=== PATIENT | male | born 1950 | race Caucasian/White ===

== ENCOUNTER 2018-02-11 23:34 | Emergency (ER) | payer MEDICARE, SELFPAY ==
[2018-02-11 23:34] VITALS: BP 134/86; PULSE 170; RESP 20; TEMP 36.4; O2SAT 96; BMI 41.1
--- NOTE | 2018-02-11 23:48 | EKG12_ITS ---
Test Reason : Blood Pressure : / mmHG Vent. Rate : 152 BPM Atrial Rate : 156 BPM P-R Int : 000 ms QRS Dur : 132 ms QT Int : 316 ms P-R-T Axes : 000 -13 027 degrees QTc Int : 502 ms Atrial fibrillation with premature ventricular or aberrantly conducted complexes Right bundle branch block Abnormal ECG Confirmed by MAYURI SHEA, SUSANNE ([id number]), television news video editor RADHA HWANG ([id number]) on 02/17/2018 3:14:51 PM Referred By: MARSHAL Confirmed By:SUSANNE MESSINA MD
--- NOTE | 2018-02-11 23:49 | ED.VISSUMM ---
- ER Visit Summary Date of Service: 02/11/18 Chief Complaint: [] Tachycardia History of Present Illness: The patient is a 67 M resents to the emergency department heart racing for the last hour and a half. He felt a little clammy and checked his pulse and it was racing. He denies any other symptoms. He has a history of atrial flutter. He has had 3 cardioversions remotely. He had any problems since 2013 when he had his ablation at the [facility] by Dr. Carmona. Sees Dr. Sanchez locally twice a year. He is on no medications including beta-devonte or calcium channel devonte. He recently had myasthenia gravis a couple months ago and is on 40 mg of prednisone. Physical Examination: [] Vital signs reviewed General: Well-nourished well-developed Head: Normocephalic atraumatic Eyes: Pupils equal round and reactive to light extraocular movements intact ENT: TMs clear no hemotympanum no trauma Neck: Nontender full range of motion Cardiovascular: irregular tachycardia. No murmurs normal S1-S2 Respiratory: No distress clear to auscultation bilaterally chest nontender Abdomen: Soft nontender nondistended normal bowel sounds no masses Back: Nontender no CVA tenderness Extremities: Nontender active range of motion ?4 extremities no trauma Skin: Normal color no trauma Neuro alert oriented cranial nerves II through XII intact normal strength sensation reflexes Test Results: [] Emergency Department Course and Treatment: [] EKG shows atrial fibrillation at 152. Lab work obtained. Patient given a dose of Cardizem. Heart rate came down in the low 100s. CBC is normal except white count of 14.3. Chemistries normal except chloride 109 glucose 195 creatinine 1.3 at baseline. Coags negative. Troponin 0 0.[address] Sanchez with cardiology. He felt that we could synchronize cardiovert because the patient just went into this tonight. Patient consented to this. Given propofol in incremental dosing in place on oxygen. She was cardioverted synchronized at 150 J back to normal sinus rhythm. A repeat EKG shows sinus rhythm 81. Patient's resting comfortably. Dr. Sanchez stated due to the fact this is short-lived he does not have to be on a beta-devonte or calcium channel devonte. Aspirin and follow-up with with Dr. Sanchez as an outpatient Treatment Plan: [] Disposition: [] Impression: [] Atrial fibrillation with rapid ventricular response Procedural sedation for synchronized cardioversion Critical CARE time: 74 minutes This note was generated with ListRunner dictation software. It may contain incorrect words, spelling, and punctuation that were not noted in review of the chart prior to signing ED Disposition - Plan for ED Patient: Chief Complaint: Palpitations Referrals: Susie Johnson MD [Primary Care Provider] -
[2018-02-11] MEDS: dilTIAZem 25 MG/5 ML Vial 20 MG IV BOLUS (23:55)
[2018-02-11 23:58] VITALS: O2SAT 94
[2018-02-11 23:59] VITALS: BP 109/95; PULSE 103; RESP 12; O2SAT 94
[2018-02-12] VITALS (8 sets, daily range): BP systolic 101–149; BP diastolic 53–77; PULSE 80–138; RESP 16–20; O2SAT 92–99
[2018-02-12 00:11] LABS: Absolute Lymphocyte Count 2.19 X10^3/ul (0.83-4.51); Absolute Neutrophil Count 10.8 X10^3/uL (2.0-7.7); Basophil# 0.02 X10^3/uL; Basophil% 0.1 % (0-1); Eosinophil# 0.02 X10^3/uL; Eosinophils% 0.1 % (0-5); Hemoglobin 16.6 g/dl (13.0-16.5); Lymphocyte # 2.19 X10^3/ul (4.0); Lymphocyte % 15.3 % (19-41); Mean Corp Hgb Conc 33.9 g/gl (32-36); Mean Corpuscular Volume 88.4 fL (80-94); Mean Platelet Vol. 9.6 fl (6.2-12.0); Monocyte# 1.03 X10^3/uL; Monocyte% 7.2 % (0-10); Neutrophil % 75.8 % (47-70); POSITIVE COUNT NO; POSITIVE DIFFERENTIAL NO; POSITIVE MORPHOLOGY NO; Platelet Count 197 K/mm3 (150-450); RBC Distribution Width SD 51.9 fl (35.1-43.9); Red Blood Count 5.54 M/mm3 (4.6-6.2); White Blood Count 14.3 K/mm3 (4.4-11.0)
[2018-02-12 00:13] LABS: International Normalized Ratio 0.9; Prothrombin Time (Protime)PT. 11.9 SECONDS (11.7-14.9)
[2018-02-12 00:30] LABS: Anion Gap 10 (5-15); BUN 30 mg/dL (7-18); BUN/Creat Ratio 22.2 RATIO (10-20); Calcium,Total 8.5 mg/dL (8.5-10.1); Chloride 109 mmol/L (98-107); Creatinine, Serum 1.35 mg/dL (0.70-1.30); EST Glomerular Filtration Rate 56 mL/min (>60); Est Glom Filt Rate - Afr Amer 67 mL/min (>60); Estimated Creatinine Clearance 60.89 ml/min; Glucose 195 mg/dL (74-106); Potassium 3.9 mmol/L (3.5-5.1); Sodium Level 140 mmol/L (136-145)
[2018-02-12] MEDS: Propofol 200 MG/20 ML Vial IV BOLUS (01:12)
--- NOTE | 2018-02-12 01:15 | EKG12_ITS ---
Test Reason : REPEAT Blood Pressure : / mmHG Vent. Rate : 081 BPM Atrial Rate : 094 BPM P-R Int : 000 ms QRS Dur : 092 ms QT Int : 376 ms P-R-T Axes : 023 006 -16 degrees QTc Int : 436 ms Sinus rhythm Low voltage QRS Right intra ventricular conduction delay Nonspecific ST abnormality Abnormal ECG Confirmed by MAYURI SHEA, SUSANNE ([id number]), international editorial producer RADHA HWANG ([id number]) on 02/17/2018 3:15:46 PM Referred By: MARSHAL Confirmed By:SUSANNE MESSINA MD
--- NOTE | 2018-02-12 01:29 | ED.DEP ---
ED Disposition - Plan for ED Patient: Disposition: Home or Assisted Living Chief Complaint: Palpitations Instructions: ED Afib Referrals: Susie Johnson MD [Primary Care Provider] - James Sanchez MD [STAFF PHYSICIAN] -
== END 2018-02-12 02:00 | disposition home or self-care (01) ==
PROVIDERS: Emergency Provider Emergency Medicine; Family Provider Internal Medicine; PCP Internal Medicine
DX: I48.91 Unspecified atrial fibrillation (principal); G70.00 Myasthenia gravis without (acute) exacerbation; I10 Essential (primary) hypertension; E78.00 Pure hypercholesterolemia, unspecified; E66.9 Obesity, unspecified; I49.3 Ventricular premature depolarization; I48.92 Unspecified atrial flutter; Z79.52 Long term (current) use of systemic steroids; Z79.51 Long term (current) use of inhaled steroids; Z79.82 Long term (current) use of aspirin; Z79.899 Other long term (current) drug therapy
CPT/HCPCS: 80048; 84484; 85025; 85610; 85730; 92960; 93005; 96374; 96375; 99284; J7030; A4216

== ENCOUNTER 2018-03-13 09:40 | Observation (INO) | payer MEDICARE, SELFPAY ==
[2018-03-13] VITALS (10 sets, daily range): BP systolic 137–170; BP diastolic 38–100; PULSE 58–97; RESP 16–24; TEMP 36.7–37.2; O2SAT 94–100; BMI 40.4; BMI 41.5
--- NOTE | 2018-03-13 09:52 | CT_ITS ---
STUDY: CT ABDOMEN AND PELVIS WITHOUT CONTRAST REASON FOR EXAM: Male, 67 years old. Left-sided flank pain. Patient has history of appendectomy. RADIATION DOSAGE (If Supplied By Facility): CTDIvol = ( 23.06 ) mGy, DLP = ( 1238.56 ) mGycm TECHNIQUE: Transaxial images were obtained from the dome of the diaphragm to the symphysis pubis without oral contrast, and without intravenous contrast. Sagittal and coronal images were reconstructed. Individualized dose optimization techniques were used for this CT. COMPARISON: None. FINDINGS: There is interstitial thickening visible at the lung bases The visualized portions of the heart are within normal limits. Normal liver. There are multiple gallstones. Normal spleen. Normal pancreas. Normal bilateral adrenal glands. There is mild cortical atrophy of the right kidney, consistent with chronic medical renal disease. There is a small exophytic cystic lesion arising from the posterior aspect of the right kidney measuring 8 mm in greatest dimension. This is too small to characterize. There is mild cortical atrophy of the left kidney, consistent with chronic medical renal disease. There is mild left-sided hydronephrosis and hydroureter secondary to proximal ureteral calculus measuring approximately 6 mm in greatest dimension. Normal visualized stomach. There is no evidence for dilated bowel, ascites or pneumoperitoneum. Small bowel has a grossly normal appearance. Surgical sutures are visible at the hepatic flexure the colon. Appears to been partial right-sided hemicolectomy. There is very little solid stool with nondistention of the rest of the colon and questionable thickening of the franco. There is non-visualization of the appendix. There is minimal atherosclerotic calcification of the abdominal aorta with elongation and tortuosity, but without a demonstrated aneurysm. Normal inferior vena cava. Normal retroperitoneum. Normal urinary bladder. Normal visualized prostate gland. There appears to be an umbilical hernia containing fat. There may also be bilateral inguinal hernias containing fat. There are diffuse degenerative changes of the visualized thoracic and lumbar spine. CT/Abdomen/Pelvis without Cont IMPRESSION: 1. Mild left-sided hydronephrosis and hydroureter secondary to proximal ureteral calculus. 2. Sequela of partial right-sided colectomy. 3. Cholelithiasis. Electronically Signed: Krupa Rudd MD at 11:02 EDT , Service support ,
[2018-03-13 10:16] LABS: Absolute Lymphocyte Count 3.56 X10^3/ul (0.83-4.51); Absolute Neutrophil Count 6.1 X10^3/uL (2.0-7.7); Basophil# 0.03 X10^3/uL; Basophil% 0.3 % (0-1); Eosinophil# 0.08 X10^3/uL; Eosinophils% 0.7 % (0-5); Hematocrit 42.1 % (40-54); Hemoglobin 14.1 g/dl (13.0-16.5); Lymphocyte # 3.56 X10^3/ul (4.0); Lymphocyte % 32.9 % (19-41); Mean Corp Hgb Conc 33.5 g/gl (32-36); Mean Corpuscular Hgb 29.9 pg (27.0-32.0); Mean Corpuscular Volume 89.4 fL (80-94); Mean Platelet Vol. 9.2 fl (6.2-12.0); Monocyte% 8.3 % (0-10); Neutrophil # 6.06 X10^3/uL (2.7-7.7); POSITIVE COUNT NO; POSITIVE DIFFERENTIAL NO; POSITIVE MORPHOLOGY NO; Platelet Count 235 K/mm3 (150-450); RBC Distribution Width CV 16.4 % (11.6-14.6); RBC Distribution Width SD 52.2 fl (35.1-43.9); Red Blood Count 4.71 M/mm3 (4.6-6.2); White Blood Count 10.8 K/mm3 (4.4-11.0)
[2018-03-13] MEDS: 0.9% Normal Saline 1,000 ML 1000 ML IV (10:19)
[2018-03-13] MEDS: Morphine 4 MG/ML Syringe IV ×2 (10:19→11:08)
[2018-03-13] MEDS: Ondansetron 4 MG/2 ML Vial IV (10:20)
[2018-03-13 10:26] LABS: ALB/GLOB Ratio 0.9 RATIO (0.9-2.4); AST(SGOT) 18 U/L (15-37); Alanine Aminotransfer ALT/SGPT 37 U/L (16-61); Alkaline Phosphatase 53 U/L (45-117); Anion Gap 8 (5-15); BUN 15 mg/dL (7-18); BUN/Creat Ratio 14.2 RATIO (10-20); Calcium,Total 8.5 mg/dL (8.5-10.1); Chloride 109 mmol/L (98-107); Creatinine, Serum 1.06 mg/dL (0.70-1.30); EST Glomerular Filtration Rate 74 mL/min (>60); Est Glom Filt Rate - Afr Amer 89 mL/min (>60); Estimated Creatinine Clearance 77.55 ml/min; Globulin 3.2 g/dL (2.2-4.2); Glucose 133 mg/dL (74-106); Lipase 186 U/L (73-393); Potassium 3.8 mmol/L (3.5-5.1); Protein, Total 6.2 g/dL (6.4-8.2); Sodium Level 143 mmol/L (136-145)
[2018-03-13 11:21] LABS: Mucous, Urine 0 SEEN /hpf (<or=2+); Squamous Epithelial Cells - UA 0 SEEN /hpf (0-5)
[2018-03-13 11:24] LABS: Color, Urine Yellow (Yellow); Glucose, Dipstick Normal (Normal); Ketone-Dipstick 50 mg/dl (Negative); Leukocyte Esterase-Dipstick 25 /ul (Negative); Nitrite-Dipstick Negative (Negative); Occult Blood-Urine 250 /ul (Negative); Protein-Dipstick 30 mg/dl (Negative); Specific Gravity, Urine 1.015 (1.002-1.030); Urine Bilirubin Dipstick Negative (Negative); Urine Clarity Clear (Clear); Urine Urobilinogen Normal (Normal)
[2018-03-13 11:31] LABS: Bacteria 1+ /hpf (None Seen); Red Blood Cells-Urine 50-100 SEEN /hpf (0-5); White Blood Cells 5-10 SEEN /hpf (0-5)
--- NOTE | 2018-03-13 11:33 | ED.VISSUMM ---
- ER Visit Summary Date of Service: 03/13/18 Chief Complaint: Flank pain History of Present Illness: The patient is a 67 M with left-sided flank pain. This started relatively suddenly earlier this morning. It involves his left flank and left lower quadrant. Associated with nausea but no vomiting. He denies any urinary changes. Denies diarrhea or constipation. He has a history of gallstones and myasthenia gravis. Denies any history of kidney stones. Physical Examination: Vital signs unremarkable. Afebrile. Patient appears very uncomfortable. Heart regular. Lungs clear. Abdomen is tender in the left flank and left lower quadrant area. No guarding rebound. Skin appears normal. Test Results: Labs all fairly unremarkable. Urinalysis is pending at the time of this dictation. CT flank shows a 6 mm proximal ureter stone on the left side with mild hydro-ureter and hydronephrosis. He also has cholelithiasis and postoperative changes. Emergency Department Course and Treatment: Patient received fluids, morphine, and Zofran. He quite an additional dose of morphine. He continued to have very severe pain, 8 out of 10. He received a dose of Dilaudid. Patient is not appropriate for outpatient care and follow-up. I spoke with Dr. Louis. Was made n.p.o. and will be admitted. Disposition: Admission Impression: 1. Left ureteral colic This note was generated with 37[employer] dictation software. It may contain incorrect words, spelling, and punctuation that were not noted in review of the chart prior to signing ED Disposition - Plan for ED Patient: Chief Complaint: Abd Pain Referrals: Susie Johnson MD [Primary Care Provider] -
[2018-03-13] MEDS: HYDROmorphone 1 MG/ML Syringe IV (11:42)
--- NOTE | 2018-03-13 13:15 | EKG12_ITS ---
Test Reason : PRE-OP Blood Pressure : / mmHG Vent. Rate : 086 BPM Atrial Rate : 086 BPM P-R Int : 148 ms QRS Dur : 100 ms QT Int : 394 ms P-R-T Axes : 055 024 -26 degrees QTc Int : 471 ms Sinus rhythm with Premature atrial complexes Low voltage QRS Nonspecific ST abnormality Abnormal ECG When compared with ECG of 12-FEB-2018 01:23, Premature atrial complexes are now Present Confirmed by SHELBY WOOD ([id number]), editor publications RADHA HWANG ([id number]) on 03/25/2018 12:34:46 PM Referred By: Confirmed By:SHELBY WOOD
[2018-03-13] MEDS: 0.9% Normal Saline 1,000 ML 75 ML IV (13:22)
[2018-03-13] MEDS: Morphine 2 MG/ML Syringe IV (13:37)
--- NOTE | 2018-03-13 13:48 | HP.PCM_ITS ---
Problem List (1) Left ureteral calculus Status: Acute History of Present Illness Date of Admission: 03/13/18 Chief Complaint: Left ureteral calculi with intractable pain The patient is a 67 year old male with presentation to the emergency room and has a 6-7 mm stone in the proximal left ureter with obstruction and he had severe intractable pain emergency room called me and asked me to admit the patient because of intractable pain. Plan to take the patient today for cystoscopy and stent placement and then plan for outpatient surgery regarding the stone probably will be able to home today after placed a stent. No fevers or chills. No signs of infection. Obese male with history of heart disease and a cardiac ablation in the past and has myasthenia gravis. Past Medical History Past Medical History (Chronic Problems): Chronic Problems (Last Reviewed 08/05/17 @ 10:22 by James Sanchez MD) Premature ventricular beat (Chronic) Hyperlipidemia (Chronic) Hypertension (Chronic) Atrial flutter (Chronic) Paroxysmal atrial flutter (Chronic) Obesity (BMI 30-39.9) (Chronic) Medical History: Medical History (Last Reviewed 08/05/17 @ 10:22 by James Sanchez MD) Premature ventricular beat (Chronic) I49.3 Hyperlipidemia (Chronic) E78.5 Hypertension (Chronic) I10 Atrial flutter (Chronic) I48.92 Obesity (BMI 30-39.9) (Chronic) E66.9 Asthma dependent on inhaled steroids J45.909, Z79.51 Myasthenia gravis without (acute) exacerbation G70.00 Neoplasm of colon, malignant C18.9 Obstructive sleep apnea (adult) (pediatric) G47.33 Allergies grass pollen-perennial rye, standar [grass poll-perennial rye,std] Allergy ( Intermediate, Verified 03/13/18 09:43) Inflammation of lung Home Medications: Ambulatory Orders Medication Instructions Recorded Albuterol Sulfate [Proventil Hfa] 2 puff IH 4X/DAY PRN PRN 06/09/14 Aspirin [Aspirin, Baby] 81 mg PO DAILY@0800 06/09/14 Fluticasone 0.05% [Flonase Nasal 2 spray NASAL DAILY 06/09/14 [place]] Multivitamins,Therapeutic 1 tab PO DAILY 06/09/14 [Multivitamin] [place]-3 Fatty Acids/Fish Oil [Fish 2 ea PO DAILY 06/09/14 Oil 1,000 mg Capsule] Budesonide/Formoterol 160/4.5 2 puff INHALATION BID 08/15/14 [Symbicort 160/4.5 Mcg Inhaler (SP)] Montelukast [Singulair] 10 mg PO DAILY 08/15/14 cholecalciferol (vitamin D3) 2,000 2,000 unit PO DAILY 08/04/17 unit capsule pyridostigmine bromide ER 180 mg 180 mg PO QHS 08/05/17 tablet,extended release Loratadine [Claritin] 10 mg PO DAILY 02/11/18 Prednisone 40 mg PO DAILY 02/11/18 Aspirin 325 mg PO DAILY@0800 03/13/18 Pyridostigmine [place] 60 mg PO 4X/DAY 03/13/18 Surgical History: Surgical History (Last Reviewed 08/05/17 @ 10:09 by Sasha Talamantes) Cataract extraction status of right eye Onset Date: ~2016 Z98.41 Cataract extraction status of right eye Onset Date: ~02/2017 Z98.41 History of cardioversion Onset Date: ~11/20/11 Z98.890 History of colectomy Onset Date: ~11/19/06 Z90.49 History of radiofrequency ablation (RFA) for complex left atrial arrhythmia Onset Date: ~08/21/14 Z98.890, Z86.79 [facility]icose [facility] Onset Date: ~2009 excision of heel spur Onset Date: ~1991 fissurectomy with spincterectomy Onset Date: ~1988 Surgical History: appendectomy, arthroscopy, knee, - - Cardiac heart ablation Psychiatric History: No pertinent psych hx Smoking Status: Never smoker - *Family History Paternal Family History: Family History (Last Reviewed 08/05/17 @ 10:09 by Sasha Talamantes) Mother Diabetes Cancer History Items: - - Reviewed significant for longevity Review of Systems Constitutional: Denies: Chills, Fever, Weight Change HEENT: Denies: Head Aches, Sinus Congestion, Sinus Drainage Cardiovascular: Denies: Chest Pain, Palpitations Respiratory: Denies: Cough, Shortness of breath at rest, Sputum production Gastrointestinal: Reports: Abdominal Pain. Denies: Nausea, Vomiting Genitourinary: Reports: Hematuria. Denies: Dysuria Musculoskeletal: Denies: Joint Pain, Joint Tenderness Skin: Denies: Rash, Wounds Neurological: Denies: Numbness, Tingling, Focal weakness Psychiatric: Denies: Anxiety, Depression, Homicidal Ideations, Suicidal Ideations Hematologic/ Lymphatic: Denies: Easy Bruising, Easy Bleeding VTE Information - Inpt Only VTE Present on Admission: No VTE Mechan Device Prophylaxis: SCD's VTE Pharm Prophylaxis ordered?: No Reason prophylaxis not ordered:: Treatment Not Indicated Patient Problems: Active and Suspected Problems (Last Reviewed 08/05/17 @ 10:22 by James Sanchez MD ) Left ureteral calculus (Acute) - Physical Exam General: Alert, Oriented x3, Cooperative HEENT: Atraumatic, PERRLA, EOMI, Normocephalic Neck: Supple, No JVD, Negative Carotid Bruits Lungs: Clear to auscultation, Normal air movement Cardiovascular: Regular rate, No murmurs Abdomen: Bowel Sounds Present, Soft, Non Tender, Obese Extremities: No edema, Capillary Refill Less than 3 Seconds Skin: No rashes, No breakdown Musculoskeletal: No Tenderness to Palpation of Joints or Extremities Neurological: Cranial nerves II-XII grossly intact Psych/Mental Status: Normal Affect, Appropriate Vital Signs Temp Pulse Resp BP Pulse Ox 98.9 F 70 24 H 170/100 H 100 03/13/18 09:41 03/13/18 11:44 03/13/18 11:44 03/13/18 11:44 03/13/18 11:44 Weight: 146.8 kg Body Mass Index (BMI) 41.5 Assessment/Plan All Active Problems (Last Reviewed 08/05/17 @ 10:22 by James Sanchez MD) Left ureteral calculus (Acute) Bronchitis (Resolved) Atrial flutter with rapid ventricular response (Resolved) 67-year-old male with multiple medical problems including obesity, history of heart disease with cardiac ablation, history of myasthenia gravis. Presents to the emergency room with severe pain obstructing left ureteral stone about 6-7 mm in size I do not think uvula passed a stone spontaneously given its proximal location. He is failed conservative measures so today when taken to surgery for cystoscopy left stent placement if he can visualize a stone under fluoroscopy probably plan for left [facility] at [facility] the next data available.
[2018-03-13] MEDS: Lidocaine Jelly 2% 20 ML Syringe (URO-JET) 20 APPLIC (14:01)
--- NOTE | 2018-03-13 14:33 | PCM.OPRPT ---
Problem List (1) Left ureteral calculus Status: Acute Report of Operation Date of Procedure: 03/13/18 Pre-Operative Diagnosis: Left proximal ureteral calculi causing obstruction Post-Operative Diagnosis: Same Surgery/Procedure Performed:: Cystoscopy, left stent placement Description of Surgical Findings:: 67-year-old male brought back to the operating room he underwent a MAC local anesthesia, he is placed in dorsal lithotomy position, the penis and testicles were prepped and draped in usual sterile fashion, I then went into the bladder with a 21 [place] rigid cystourethroscope the entire length the urethra is normal the prostate was normal but very high bladder neck of the pushed down really far and to go into the bladder neck fairly high difficult to get into the bladder once is in the bladder identified the left ureteral orifice I advanced a wire and I could see the stone and then I pushed a stent up into the left kidney once a stent was apparent loss of stone under fluoroscopy but I could see the stone initially. And then once the stent was in good position I pulled on the wire and the stent coiled in the kidney bladder Is good position there was a 28[address] [place]. Patient anesthetic was reversed taken back to PACU in good condition. Type of Anesthesia:: General Drains: stent - Admit VTE Documentation VTE Present on Admission: No VTE Mechan Device Prophylaxis: SCD's VTE Pharm Prophylaxis ordered?: No Reason prophylaxis not ordered:: Treatment Not Indicated
--- NOTE | 2018-03-13 14:38 | PCM.DC.URO ---
Discharge Diet: Light diet - advance as tolerated Discharge Activity: Return to Normal Activity Call your doctor if you observe: Fever of 101 or Higher Instructions: Preventing Kidney Stones Allergies/Adverse Reactions: Allergies grass pollen-perennial rye, standar [grass poll-perennial rye,std] Allergy (Intermediate, Verified 03/13/18 09:43) Inflammation of lung Medications to take at Discharge Albuterol Sulfate [Proventil Hfa] 2 puff IH 4X/DAY PRN PRN 06/09/14 Aspirin [Aspirin, Baby] 81 mg PO DAILY@0800 06/09/14 Fluticasone 0.05% [Flonase Nasal [place]] 2 spray NASAL DAILY 06/09/14 Multivitamins,Therapeutic [Multivitamin] 1 tab PO DAILY 06/09/14 [place]-3 Fatty Acids/Fish Oil [Fish Oil 1,000 mg Capsule] 2 ea PO DAILY 06/09/14 Budesonide/Formoterol 160/4.5 [Symbicort 160/4.5 Mcg Inhaler (SP)] 2 puff INHALATION BID 08/15/14 Montelukast [Singulair] 10 mg PO DAILY 08/15/14 cholecalciferol (vitamin D3) 2,000 unit capsule 2,000 unit PO DAILY 08/04/17 pyridostigmine bromide ER 180 mg tablet,extended release 180 mg PO QHS 08/05/17 Loratadine [Claritin] 10 mg PO DAILY 02/11/18 Prednisone 40 mg PO DAILY 02/11/18 Aspirin 325 mg PO DAILY@0800 03/13/18 Hydrocodone/Acetaminophen [[place] 5-325 Tablet] 1 ea PO Q4H PRN PRN 7 Days #20 tab 03/13/18 Phenazopyridine HCl [Pyridium] 100 mg PO Q6H PRN PRN #14 tab 03/13/18 Pyridostigmine [place] 60 mg PO 4X/DAY 03/13/18 The following prescriptions were given: Hydrocodone/Acetaminophen [[place] 5-325 Tablet] 1 ea PO Q4H PRN PRN 7 Days #20 tab PRN Reason: Pain Phenazopyridine HCl [Pyridium] 100 mg PO Q6H PRN PRN #14 tab PRN Reason: burning, stent pain. Primary Care Physician: Susie Johnson MD [Primary Care Provider] - Test Results: Test results from this visit will be discussed in further detail at your follow-up appointment, if applicable. Please Follow Up With: Gavino Louis MD When: call my office to set up for shockwave treatment of stone.
== END 2018-03-13 17:41 | disposition home or self-care (01) ==
LOC: ED 10:15 → MS3 12:00
PROVIDERS: Admitting Provider Urology; Emergency Provider Emergency Medicine; Family Provider Internal Medicine; PCP Internal Medicine; Visit Provider Urology
PROC: (CPT 52332; principal; 2018-03-13 03:00)
DX: N13.2 Hydronephrosis with renal and ureteral calculous obstruction (principal); G70.00 Myasthenia gravis without (acute) exacerbation; E78.5 Hyperlipidemia, unspecified; I10 Essential (primary) hypertension; Z68.41 Body mass index [BMI] 40.0-44.9, adult; Z71.3 Dietary counseling and surveillance; Z79.899 Other long term (current) drug therapy; Z79.82 Long term (current) use of aspirin; Z79.52 Long term (current) use of systemic steroids; I48.92 Unspecified atrial flutter; G47.33 Obstructive sleep apnea (adult) (pediatric); Z85.038 Personal history of other malignant neoplasm of large intestine; J45.909 Unspecified asthma, uncomplicated; Z79.51 Long term (current) use of inhaled steroids; E66.01 Morbid (severe) obesity due to excess calories
CPT/HCPCS: 52332; 74176; 76000; 80053; 81001; 83690; 85025; 93005; 96361; 96374; 96375; 96376; 99218; 99285; J7030; A4216; C1769; G0378; J2405

== ENCOUNTER 2018-03-26 14:02 | Day surgery (SDC) | payer MEDICARE, SELFPAY ==
--- NOTE | 2018-03-26 10:53 | RAD_ITS ---
STUDY: X-RAY CHEST REASON FOR EXAM: Male, 68 years old. Preop for abdominal surgery TECHNIQUE: 2 PA and lateral views of the chest. 2 PA chest required to visualized both costophrenic angles COMPARISON: 2013 FINDINGS: The lungs are clear and expanded. There is no demonstrated pleural abnormality. Normal size heart. Normal mediastinum and samm. Normal visualized pulmonary arteries. Normal visualized aortic arch and descending thoracic aorta. Normal visualized thoracic spine. Normal visualized ribs, clavicles, and shoulders. There is no demonstrated abnormality of the visualized soft tissue structures of the upper abdomen. RAD/Chest PA and Lateral IMPRESSION: Normal x-ray examination of the chest. Electronically Signed: Jake Mcghee MD at 14:40 EDT , Service support ,
--- NOTE | 2018-03-26 14:00 | RAD_ITS ---
STUDY: X-RAY - ABDOMEN/PELVIS REASON FOR EXAM: Male, 68 years old. Left-sided pain TECHNIQUE: 3 AP views COMPARISON: CT scan from 03/13/2018 FINDINGS: Satisfactory appearance of a left-sided JJ stent. No demonstrated calcifications noted along the course of the stent. There are also no demonstrated calcifications overlying the right renal shadow or along the expected course of the right ureter. There is an unremarkable bowel gas pattern. There is no demonstrated free abdominal air. The visualized liver, spleen and kidneys are grossly normal in size and morphology. Normal soft tissue structures. There are diffuse degenerative changes of the visualized lumbar spine. RAD/Abdomen Single View IMPRESSION: Satisfactory position of a JJ stent No demonstrated calcifications overlying either renal shadow, or along the course of the stent or expected course of the right ureter Electronically Signed: Jake Mcghee MD at 14:33 EDT , Service support ,
--- NOTE | 2018-03-26 14:31 | EKG12_ITS ---
Test Reason : PRE-OP Blood Pressure : / mmHG Vent. Rate : 097 BPM Atrial Rate : 097 BPM P-R Int : 158 ms QRS Dur : 126 ms QT Int : 384 ms P-R-T Axes : 016 013 002 degrees QTc Int : 487 ms Normal sinus rhythm Right bundle branch block Abnormal ECG Confirmed by MAYURI SHEA, SUSANNE ([id number]), manager editorial RADHA HWANG ([id number]) on 04/02/2018 8:35:55 AM Referred By: Gavino Louis Confirmed By:SUSANNE MESSINA MD
[2018-03-26 14:54] VITALS: BP 141/76; PULSE 97; RESP 16; TEMP 36.9; O2SAT 96; BMI 40.4
[2018-03-26 14:59] LABS: Hematocrit 43.8 % (40-54); Hemoglobin 14.4 g/dl (13.0-16.5); Mean Corp Hgb Conc 32.9 g/gl (32-36); Mean Corpuscular Hgb 29.4 pg (27.0-32.0); Mean Corpuscular Volume 89.6 fL (80-94); Mean Platelet Vol. 9.4 fl (6.2-12.0); Platelet Count 238 K/mm3 (150-450); RBC Distribution Width CV 16.3 % (11.6-14.6); RBC Distribution Width SD 53.1 fl (35.1-43.9); Red Blood Count 4.89 M/mm3 (4.6-6.2); White Blood Count 12.9 K/mm3 (4.4-11.0)
[2018-03-26 15:00] LABS: Scan Indicated on CBC? Y/N NO
[2018-03-26 15:29] LABS: Anion Gap 7 (5-15); BUN 16 mg/dL (7-18); Calcium,Total 8.7 mg/dL (8.5-10.1); Chloride 109 mmol/L (98-107); EST Glomerular Filtration Rate 79 mL/min (>60); Est Glom Filt Rate - Afr Amer 96 mL/min (>60); Estimated Creatinine Clearance 81.06 ml/min; Glucose 128 mg/dL (74-106); Sodium Level 140 mmol/L (136-145)
[2018-03-26] MEDS: Cefazolin 2 GM in 0.9% Normal Saline 100 ML IV (15:38)
--- NOTE | 2018-03-26 16:55 | DCINST_ITS ---
Discharge Diet: Light diet - advance as tolerated Discharge Activity: Return to Normal Activity, May Not Drive - for 2 days. Additional Activity Instructions:: f you have a catheter, remove on ___. If you have any problems after catheter is removed, call [phone] and ask for your doctor to be paged. Please be aware that pain medications may cause nausea. You should typically eat light foods as you take your pain medication. Pain medication may cause constipation, if this is a problem for you, please discuss with your doctor. Instructions: Shock Wave Lithotripsy Allergies/Adverse Reactions: Allergies grass pollen-perennial rye, standar [grass poll-perennial rye,std] Allergy ( Intermediate, Verified 03/23/18 13:26) Inflammation of lung Medications to take at Discharge Albuterol Sulfate [Proventil Hfa] 2 puff IH 4X/DAY PRN PRN 06/09/14 Aspirin [Aspirin, Baby] 81 mg PO DAILY@0800 06/09/14 Fluticasone 0.05% [Flonase Nasal [place]] 2 spray NASAL DAILY 06/09/14 Multivitamins,Therapeutic [Multivitamin] 1 tab PO DAILY 06/09/14 [place]-3 Fatty Acids/Fish Oil [Fish Oil 1,000 mg Capsule] 2 ea PO DAILY 06/09/14 Budesonide/Formoterol 160/4.5 [Symbicort 160/4.5 Mcg Inhaler (SP)] 2 puff INHALATION BID 08/15/14 Montelukast [Singulair] 10 mg PO DAILY 08/15/14 cholecalciferol (vitamin D3) 2,000 unit capsule 2,000 unit PO DAILY 08/04/17 pyridostigmine bromide ER 180 mg tablet,extended release 180 mg PO QHS 08/05/17 Loratadine [Claritin] 10 mg PO DAILY 02/11/18 Prednisone 20 mg PO DAILY 02/11/18 Hydrocodone/Acetaminophen [[place] 5-325 Tablet] 1 ea PO Q4H PRN PRN 7 Days #20 tab 03/13/18 Phenazopyridine HCl [Pyridium] 100 mg PO Q6H PRN PRN #14 tab 03/13/18 Pyridostigmine [place] 60 mg PO 4X/DAY 03/13/18 Hydrocodone/Acetaminophen [[place] 5-325 Tablet] 1 ea PO Q4H PRN PRN 6 Days #14 tab 03/26/18 The following prescriptions were given: Hydrocodone/Acetaminophen [[place] 5-325 Tablet] 1 ea PO Q4H PRN PRN 6 Days #14 tab PRN Reason: Pain Primary Care Physician: Susie Johnson MD [Primary Care Provider] - Test Results: Test results from this visit will be discussed in further detail at your follow- up appointment, if applicable. Please Follow Up With: Gavino Louis MD When: in 2 weeks, please call to make an appointment.
--- NOTE | 2018-03-26 16:55 | PCM.OPRPT ---
Report of Operation Date of Procedure: 03/26/18 Pre-Operative Diagnosis: Left ureteral calculi Post-Operative Diagnosis: Same Surgery/Procedure Performed:: Cystoscopy, left retrograde pyelogram, left ureteroscopy, left shockwave lithotripsy, stent removal left. Description of Surgical Findings:: 68-year-old male taken back to the operating room at the smooth induction of general anesthesia he was placed supine on the table in the dorsolithotomy position, penis and testicles were prepped and draped in usual sterile fashion went into the bladder with a flexible cystoscope grabbed the existing stent and pulled out the meatus advanced a wire up the stent under fluoroscopy we could not visualize a stone up in the kidney so I advanced a wire up the stent backloaded the stent off the wire and then advanced the Pollack catheter performed a retrograde pyelogram could not see a stone in the upper part of the kidney I then put a wire up into the kidney and over the wire went in with a flexible ureteroscope I inspected the upper pole midpole lower pole again could not see the stone so then I worked my way down the ureter and finally found the stone in the distal part of the ureter, we then repositioned the patient remove the ureteroscope remove the wire and then we found the stone in the distal ureter we delivered a total of 3000 shockwaves to the stone at a rate of 90-120 shocks per minute power up to 7 and 9 and the stone broke up with a little pieces and all these pieces passed into the bladder, I then drained the bladder decided not to leave a stent inside the stone had broken up quite well and we remove the prior stent patient's anesthetic was reversed and is taken back to the PACU in good condition. Type of Anesthesia:: General Drains: none - Admit VTE Documentation VTE Present on Admission: No VTE Mechan Device Prophylaxis: SCD's
[2018-03-26 17:03] VITALS: BP 141/76; BP 161/85; PULSE 79; RESP 16; TEMP 36.8; O2SAT 95
[2018-03-26 17:15] VITALS: BP 141/76; BP 146/85; PULSE 73; RESP 18; O2SAT 99
[2018-03-26 17:25] VITALS: BP 141/76; BP 149/94; PULSE 74; RESP 18; TEMP 36.4; O2SAT 99
[2018-03-26 17:53] VITALS: BP 141/76; BP 160/79; PULSE 76; RESP 18; TEMP 36.3; O2SAT 97
== END 2018-03-26 17:55 | disposition home or self-care (01) ==
LOC: SDC 14:02 → AC 14:04
PROVIDERS: Anesthesiology; Family Provider Internal Medicine; PCP Internal Medicine; Visit Provider Urology
PROC: (CPT 50590; principal; 2018-03-26 15:45)
DX: N20.1 Calculus of ureter (principal); G70.00 Myasthenia gravis without (acute) exacerbation; J45.909 Unspecified asthma, uncomplicated; G47.30 Sleep apnea, unspecified; E66.9 Obesity, unspecified; Z68.41 Body mass index [BMI] 40.0-44.9, adult; Z85.038 Personal history of other malignant neoplasm of large intestine; Z79.82 Long term (current) use of aspirin; Z79.52 Long term (current) use of systemic steroids; Z79.891 Long term (current) use of opiate analgesic; Z79.51 Long term (current) use of inhaled steroids; Z79.899 Other long term (current) drug therapy
CPT/HCPCS: 52353; 71046; 74018; 80048; 85027; 93005; J7120; J2405

== ENCOUNTER 2018-03-28 20:02 | Inpatient (IN) | payer MEDICARE, SELFPAY ==
[2018-03-28 20:03] VITALS: BP 160/64; PULSE 123; RESP 16; TEMP 37.9; O2SAT 98; BMI 40.6
--- NOTE | 2018-03-28 20:18 | CT_ITS ---
STUDY: CT ABDOMEN AND PELVIS WITHOUT CONTRAST REASON FOR EXAM: Male, 68 years old. Fever status post lithotripsy RADIATION DOSAGE (If Supplied By Facility): CTDIvol = ( 22.46 ) mGy, DLP = ( 1228.77 ) mGycm TECHNIQUE: Transaxial images were obtained from the dome of the diaphragm to the symphysis pubis without oral contrast, and without intravenous contrast. Sagittal and coronal images were reconstructed. Individualized dose optimization techniques were used for this CT. COMPARISON: March 13, 2018 FINDINGS: The visualized lung bases are unremarkable. Calcific coronary artery disease and small pericardial effusion. 2 cm simple cyst left lobe of the liver. Multiple gallstones. Normal spleen. Normal pancreas. Normal bilateral adrenal glands. Normal right kidney. Gas is now noted within the left ureteropelvic junction. The previously noted ureterolith at this level has migrated and then passed. It is not identified. Normal visualized stomach. Normal small intestine. Status post right hemicolectomy. Normal abdominal aorta. Normal inferior vena cava. Normal retroperitoneum. Normal urinary bladder. Bilateral fat-containing inguinal hernias. Fat-containing infraumbilical ventral hernia and umbilical hernias. Large bridging osteophytes anteriorly. CT/Abdomen/Pelvis without Cont IMPRESSION: Left UPJ stone has been passed. There is residual gas in the collecting system at this level which could represent infection. Other incidental findings as noted above including gallstones. Electronically Signed: Nadeem Eller MD at 22:05 EDT , Service support ,
--- NOTE | 2018-03-28 20:20 | RAD_ITS ---
STUDY: X-RAY CHEST REASON FOR EXAM: Male, 68 years old. Fever TECHNIQUE: Single frontal view of the chest. COMPARISON: March 26, 2018 FINDINGS: The lungs are clear and expanded. There is no demonstrated pleural abnormality. Normal size heart. Normal mediastinum and samm. Normal visualized pulmonary arteries. Normal visualized aortic arch and descending thoracic aorta. Normal visualized thoracic spine. Normal visualized ribs, clavicles, and shoulders. There is no demonstrated abnormality of the visualized soft tissue structures of the upper abdomen. RAD/Chest 1 View (Portable) IMPRESSION: Normal x-ray examination of the chest. Electronically Signed: Nadeem Eller MD at 21:28 EDT , Service support ,
--- NOTE | 2018-03-28 20:20 | ED.VISSUMM ---
- ER Visit Summary Date of Service: 03/28/18 Chief Complaint: Fever History of Present Illness: The patient is a 68 M presenting with fever, chills. Patient had lithotripsy on March [address] Louis. He states he was feeling well yesterday. Today he developed fever, chills. He had a temperature up to 101.4 at home. He has had urinary frequency; denies dysuria or hematuria. Denies nausea or vomiting. He has had loose stool. Denies chest pain or shortness of breath. He called Dr. Ugarte and was advised to come to the ED for further evaluation. Physical Examination: Vitals are stable. Temperature 100.3. HR 123. Alert no acute distress. HEENT exam is unremarkable. Neck is supple. Lungs are clear and equal bilaterally. Heart is regular and tachycardic Abdomen is soft nontender nondistended. Back is nontender Extremities are unremarkable. Skin is warm and dry. No focal neurologic deficit. Remainder of exam is unremarkable. Emergency Department Course and Treatment: Patient was given IV fluids, Tylenol. CBC shows a white count of 14.2. Chemistries normal except for glucose 144, BUN 20. Urinalysis shows over 100 white blood cells, over 100 red blood cells, 2+ bacteria. Lactic acid 2.9. Blood and urine cultures were sent. He was given Rocephin IV. Chest x-ray shows no acute process. CT abdomen pelvis without contrast shows left UPJ stone has been passed. There is residual gas in the collecting system at this level which could represent infection. Discussed with Dr. Ugarte and the hospitalist. Patient will be admitted. Disposition: Admission Impression: Severe sepsis secondary to UTI This note was generated with [employer] dictation software. It may contain incorrect words, spelling, and punctuation that were not noted in review of the chart prior to signing ED Disposition - Plan for ED Patient: Chief Complaint: Complaint Referrals: Susie Johnson MD [Primary Care Provider] -
[2018-03-28] MEDS: Acetaminophen 500 MG Tablet 1000 MG PO (20:36)
[2018-03-28] MEDS: 0.9% Normal Saline 1,000 ML 1000 ML IV (20:38)
[2018-03-28 20:47] LABS: Mucous, Urine 0 SEEN /hpf (<or=2+)
[2018-03-28 20:49] LABS: Color, Urine Yellow (Yellow); Glucose, Dipstick Normal (Normal); Ketone-Dipstick Negative (Negative); Leukocyte Esterase-Dipstick 500 /ul (Negative); Nitrite-Dipstick Negative (Negative); Occult Blood-Urine 250 /ul (Negative); Protein-Dipstick 30 mg/dl (Negative); Urine Bilirubin Dipstick Negative (Negative); Urine Clarity Sl. Cloudy (Clear); Urine Urobilinogen 1 mg/dl (Normal)
[2018-03-28 20:54] LABS: Absolute Lymphocyte Count 1.34 X10^3/ul (0.83-4.51); Absolute Neutrophil Count 11.4 X10^3/uL (2.0-7.7); Basophil# 0.01 X10^3/uL; Basophil% 0.1 % (0-1); Eosinophil# 0.02 X10^3/uL; Eosinophils% 0.1 % (0-5); Hematocrit 44.7 % (40-54); Hemoglobin 14.5 g/dl (13.0-16.5); Lymphocyte # 1.34 X10^3/ul (4.0); Lymphocyte % 9.4 % (19-41); Mean Corp Hgb Conc 32.4 g/gl (32-36); Mean Corpuscular Hgb 29.7 pg (27.0-32.0); Mean Corpuscular Volume 91.6 fL (80-94); Mean Platelet Vol. 9.3 fl (6.2-12.0); Monocyte# 1.37 X10^3/uL; Monocyte% 9.6 % (0-10); Neutrophil # 11.41 X10^3/uL (2.7-7.7); Neutrophil % 80.4 % (47-70); Platelet Count 209 K/mm3 (150-450); RBC Distribution Width CV 16.5 % (11.6-14.6); RBC Distribution Width SD 54.8 fl (35.1-43.9); Red Blood Count 4.88 M/mm3 (4.6-6.2); White Blood Count 14.2 K/mm3 (4.4-11.0)
[2018-03-28 20:55] LABS: POSITIVE COUNT NO; POSITIVE DIFFERENTIAL NO; POSITIVE MORPHOLOGY NO
[2018-03-28 21:07] LABS: Anion Gap 6 (5-15); BUN 20 mg/dL (7-18); BUN/Creat Ratio 16.5 RATIO (10-20); Calcium,Total 8.6 mg/dL (8.5-10.1); Chloride 108 mmol/L (98-107); Creatinine, Serum 1.21 mg/dL (0.70-1.30); EST Glomerular Filtration Rate 63 mL/min (>60); Est Glom Filt Rate - Afr Amer 77 mL/min (>60); Estimated Creatinine Clearance 66.99 ml/min; Glucose 144 mg/dL (74-106); Potassium 3.9 mmol/L (3.5-5.1); Sodium Level 141 mmol/L (136-145)
[2018-03-28 21:22] LABS: Red Blood Cells-Urine > 100 SEEN /hpf (0-5); White Blood Cells >100 SEEN /hpf (0-5)
[2018-03-28 21:23] LABS: Bacteria 2+ /hpf (None Seen); Squamous Epithelial Cells - UA 0-5 SEEN /hpf (0-5)
--- NOTE | 2018-03-28 21:33 | ED.RN ---
DR CABELLO MADE AWARE OF LACTIC ACID 2.9.
[2018-03-28 21:34] LABS: Lactic Acid 2.9 mmol/L (0.4-2.0)
[2018-03-28] MEDS: Ceftriaxone 1 GM/50 ML BAG IV (21:41)
[2018-03-28 21:48] VITALS: TEMP 37.7
--- NOTE | 2018-03-28 22:29 | PCM.HP.STD ---
Problem List (1) Sepsis due to urinary tract infection Status: Acute (2) Myasthenia gravis Status: Chronic (3) Paroxysmal atrial flutter Status: Chronic History of Present Illness Date of Admission: 03/28/18 Chief Complaint: Chills ?1 day. The patient is a 68 year old M with a significant history of atrial fibrillation status post ablation; myasthenia gravis; and allergies who presented with 1 day history of persistent chills and fever. His measured temperature at home was 101.4. Two days ago patient had lithotripsy at the office of Dr. Louis with debris coming out. Associated with symptoms is mild left groin pain. He had regular stool in the morning of his admission; and later on in the evening close to his admission time he had one episode of loose stool. He denies taking any antibiotics except antibiotics that might have be given to him during the procedure for lithotripsy. Notably he had a one-time episode of blood stained urine on the day of admission At emergency department he had a leukocytosis of 14.2; lactic acidosis of 2.9; andn abnormal urinalysis. A CT scan of his abdomen and pelvis showed that the left UPJ stone has been passed. Blood cultures and urine cultures were obtained. Dr. Ugarte, urologist was notified of patient condition. Dr. Ugarte, recommended that patient be kept n.p.o. for possible urological procedure in the following morning. Past Medical History Past Medical History (Chronic Problems): Chronic Problems (Last Reviewed 03/28/18 @ 23:18 by Michael Levi MD) Paroxysmal atrial flutter (Chronic) Myasthenia gravis (Chronic) Premature ventricular beat (Chronic) Hyperlipidemia (Chronic) Hypertension (Chronic) Atrial flutter (Chronic) Obesity (BMI 30-39.9) (Chronic) Medical History: Medical History (Last Reviewed 03/28/18 @ 23:18 by Michael Levi MD) Premature ventricular beat (Chronic) I49.3 Hyperlipidemia (Chronic) E78.5 Hypertension (Chronic) I10 Atrial flutter (Chronic) I48.92 Obesity (BMI 30-39.9) (Chronic) E66.9 Asthma dependent on inhaled steroids J45.909, Z79.51 Myasthenia gravis without (acute) exacerbation G70.00 Neoplasm of colon, malignant C18.9 Obstructive sleep apnea (adult) (pediatric) G47.33 Allergies grass pollen-perennial rye, standar [grass poll-perennial rye,std] Allergy (Intermediate, Verified 03/23/18 13:26) Inflammation of lung Home Medications: Ambulatory Orders Medication Instructions Recorded Albuterol Sulfate [Proventil Hfa] 2 puff IH 4X/DAY PRN PRN 06/09/14 Aspirin [Aspirin, Baby] 81 mg PO DAILY@0800 06/09/14 Fluticasone 0.05% [Flonase Nasal 2 spray NASAL DAILY 06/09/14 [place]] Multivitamins,Therapeutic 1 tab PO DAILY 06/09/14 [Multivitamin] Citra-3 Fatty Acids/Fish Oil [Fish 2 ea PO DAILY 06/09/14 Oil 1,000 mg Capsule] Budesonide/Formoterol 160/4.5 2 puff INHALATION BID 08/15/14 [Symbicort 160/4.5 Mcg Inhaler (SP)] Montelukast [Singulair] 10 mg PO DAILY 08/15/14 cholecalciferol (vitamin D3) 2,000 2,000 unit PO DAILY 08/04/17 unit capsule pyridostigmine bromide ER 180 mg 180 mg PO QHS 08/05/17 tablet,extended release Loratadine [Claritin] 10 mg PO DAILY 02/11/18 Prednisone 15 mg PO DAILY 02/11/18 Pyridostigmine [place] 4 tab PO Q4H 03/13/18 Surgical History: Surgical History (Last Updated 03/28/18 @ 23:18 by Michael Levi MD) History of appendectomy Z90.49 Cataract extraction status of right eye Onset Date: ~2016 Z98.41 Cataract extraction status of right eye Onset Date: ~02/2017 Z98.41 History of cardioversion Onset Date: ~11/20/11 Z98.890 History of colectomy Onset Date: ~11/19/06 Z90.49 History of radiofrequency ablation (RFA) for complex left atrial arrhythmia Onset Date: ~08/21/14 Z98.890, Z86.79 At [facility] by Dr. Carolyn Lai-Kristine CC laser removal vericose veins Onset Date: ~2009 excision of heel spur Onset Date: ~1991 fissurectomy with spincterectomy Onset Date: ~1988 Surgical History: appendectomy, arthroscopy, knee, - - Cardiac heart ablation Psychiatric History: No pertinent psych hx Lives: Spouse/ Significant Other Smoking Status: Never smoker Tobacco Use: Non-smoker Alcohol: Occasional - *Family History Paternal Family History: Family History (Last Reviewed 03/28/18 @ 23:19 by Michael Levi MD) Mother Diabetes Cancer History Items: - - Reviewed significant for longevity Review of Systems Constitutional: Reports: Anorexia, Chills, Fever Eyes: Reports: Blurred vision. Denies: Pain HEENT: Denies: Head Aches, Sinus Congestion, Sinus Drainage Cardiovascular: Denies: Chest Pain, Palpitations Respiratory: Denies: Cough, Shortness of breath at rest, Sputum production Gastrointestinal: Reports: - - Mild left groin pain Genitourinary: Reports: Frequency. Denies: Dysuria Musculoskeletal: Denies: Joint Pain, Joint Tenderness Skin: Denies: Rash, Wounds Neurological: Denies: Numbness, Tingling, Focal weakness Psychiatric: Denies: Anxiety, Depression, Homicidal Ideations, Suicidal Ideations Hematologic/ Lymphatic: Denies: Easy Bruising, Easy Bleeding VTE Information - Inpt Only VTE Present on Admission: No VTE Mechan Device Prophylaxis: SCD's VTE Pharm Prophylaxis ordered?: No Reason prophylaxis not ordered:: Medical Contraindication Patient Problems: Active and Suspected Problems (Last Reviewed 03/28/18 @ 23:18 by Michael Levi MD) Sepsis due to urinary tract infection (Acute) - Physical Exam General: Alert, Oriented x3, Cooperative HEENT: Atraumatic, PERRLA, EOMI, Normocephalic Neck: Supple, No JVD, Negative Carotid Bruits Lungs: Clear to auscultation Cardiovascular: Regular rate, No murmurs Abdomen: Bowel Sounds Present, Soft, Non Tender Extremities: No edema, Capillary Refill Less than 3 Seconds Skin: No rashes, No breakdown Musculoskeletal: No Tenderness to Palpation of Joints or Extremities Lymphatic: No Cervical, Supraclavicular, or Inguinal Adenopathy Neurological: Cranial nerves II-XII grossly intact Psych/Mental Status: Normal Affect, Appropriate Vital Signs Temp Pulse Resp BP Pulse Ox 99.9 F H 123 H 16 160/64 H 98 03/28/18 21:48 03/28/18 20:03 03/28/18 20:03 03/28/18 20:03 03/28/18 20:03 Oxygen Delivery Method Room Air Weight: 143.4 kg Body Mass Index (BMI) 40.6 Laboratory Tests Past 24 Hrs 03/28/18 03/28/18 03/28/18 20:15 20:32 20:33 WBC 14.2 H RBC 4.88 Hgb 14.5 Hct 44.7 MCV 91.6 MCH 29.7 MCHC 32.4 RDW 16.5 H RDW Differential 54.8 H Plt Count 209 MPV 9.3 Immature Gran % (Auto) 0.400 Neut % (Auto) 80.4 H Lymph % (Auto) 9.4 L [place] % (Auto) 9.6 Eos % (Auto) 0.1 Baso % (Auto) 0.1 Absolute Neuts (auto) 11.4 H Absolute Lymphs (auto) 1.34 Total Counted Not Reportable Sodium Potassium Chloride Carbon Dioxide Anion Gap BUN Creatinine Estim Creat Clear Calc Est GFR (MDRD) Af Amer Est GFR (MDRD) Non-Af BUN/Creatinine Ratio Glucose Lactic Acid 2.9 H Calcium Urine Color Yellow Urine Clarity Sl. Cloudy Urine pH 5.0 Ur Specific [place] 1.020 Urine Protein 30 H Urine Glucose (UA) Normal Urine Ketones Negative Urine Occult Blood 250 H Urine Nitrite Negative Urine Bilirubin Negative Urine Urobilinogen 1 H Ur Leukocyte Esterase 500 H Urine RBC > 100 SEEN Urine WBC >100 SEEN Ur Squamous Epith Cells 0-5 SEEN Urine Bacteria 2+ Urine Mucus 0 SEEN 03/28/18 20:33 WBC RBC Hgb Hct MCV MCH MCHC RDW RDW Differential Plt Count MPV Immature Gran % (Auto) Neut % (Auto) Lymph % (Auto) [place] % (Auto) Eos % (Auto) Baso % (Auto) Absolute Neuts (auto) Absolute Lymphs (auto) Total Counted Sodium 141 Potassium 3.9 Chloride 108 H Carbon Dioxide 27.0 Anion Gap 6 BUN 20 H Creatinine 1.21 Estim Creat Clear Calc 66.99 Est GFR (MDRD) Af Amer 77 Est GFR (MDRD) Non-Af 63 BUN/Creatinine Ratio 16.5 Glucose 144 H Lactic Acid Calcium 8.6 Urine Color Urine Clarity Urine pH Ur Specific [place] Urine Protein Urine Glucose (UA) Urine Ketones Urine Occult Blood Urine Nitrite Urine Bilirubin Urine Urobilinogen Ur Leukocyte Esterase Urine RBC Urine WBC Ur Squamous Epith Cells Urine Bacteria Urine Mucus Assessment/Plan All Active Problems (Last Reviewed 03/28/18 @ 23:18 by Michael Levi MD) Bronchitis (Resolved) Atrial flutter with rapid ventricular response (Resolved) Left ureteral calculus (Acute) Sepsis due to urinary tract infection (Acute) The patient is a 68 year old M with a significant history of atrial fibrillation status post ablation and not on any anticoagulation; myasthenia gravis; and allergies who presented with 1 day history of persistent chills and fever; after recent lithotripsy and was found to have leukocytosis of 14.2; lactic acidosis of 2.9; abnormal urinalysis; consistent with sepsis due to pyelonephritis. Sepsis due to pyelonephritis Had a measured temperature of 100.3 at emergency department. Received ceftriaxone, acetaminophen and normal saline infusion at emergency department. Ceftriaxone continued Normal saline infusion changed to maintenance fluid of half normal saline secondary to mild hyperchloremia Patient kept n.p.o. for possible urological procedure if any. Patient takes aspirin. He denies any history of CAD. ASA held for urological procedure. Repeat lactic acid per protocol Urine culture and blood culture pending. CBC and BMP in a.m. Urology consult. History of myasthenia gravis Steroid and Mestinon continued. Allergies Albuterol, Flonase, Claritin and Singulair and Symbicort continued. Diarrhea Reported one-time episode of loose stools. This may be antibiotic associated if indeed he had any antibiotics. Continue to monitor. DVT prophylaxis SCD. Anticoagulation not provided because of hematuria. This note was generated with [employer] dictation software. It may contain incorrect words, spelling, and punctuation that were not noted before signing the note. Code Visit Inpatient E&M: 52312 Init Hosp L2
[2018-03-28 22:45] VITALS: BP 113/53; PULSE 94; RESP 18; O2SAT 93
--- NOTE | 2018-03-28 23:12 | NURSING ---
Called [facility] ED charge nursealberto to send patient the floor.
[2018-03-28 23:45] VITALS: BP 141/67; BP 161/72; PULSE 102; RESP 16; TEMP 37.7; O2SAT 95
[2018-03-28 23:46] VITALS: BMI 40.8
[2018-03-28] MEDS: 0.45% Normal Saline 1,000 ML 75 ML IV (23:51)
[2018-03-29] VITALS (8 sets, daily range): BP systolic 112–163; BP diastolic 47–84; PULSE 56–98; RESP 14–20; TEMP 37.1–38.1; O2SAT 94–99
[2018-03-29 00:47] LABS: Reflex Lactate? Y
[2018-03-29 01:42] LABS: Lactic Acid 1.2 mmol/L (0.4-2.0)
[2018-03-29] MEDS: Pyridostigmine Bromide 60 MG Tablet PO ×5 (04:04→20:11)
[2018-03-29 06:05] LABS: Absolute Lymphocyte Count 1.96 X10^3/ul (0.83-4.51); Absolute Neutrophil Count 11.2 X10^3/uL (2.0-7.7); Basophil# 0.01 X10^3/uL; Basophil% 0.1 % (0-1); Eosinophil# 0.02 X10^3/uL; Eosinophils% 0.1 % (0-5); Hematocrit 41.6 % (40-54); Hemoglobin 13.6 g/dl (13.0-16.5); Lymphocyte # 1.96 X10^3/ul (4.0); Lymphocyte % 13.2 % (19-41); Mean Corp Hgb Conc 32.7 g/gl (32-36); Mean Corpuscular Volume 91.8 fL (80-94); Mean Platelet Vol. 9.6 fl (6.2-12.0); Monocyte# 1.49 X10^3/uL; Neutrophil # 11.24 X10^3/uL (2.7-7.7); Neutrophil % 75.9 % (47-70); Platelet Count 189 K/mm3 (150-450); RBC Distribution Width CV 17.2 % (11.6-14.6); RBC Distribution Width SD 56.1 fl (35.1-43.9); Red Blood Count 4.53 M/mm3 (4.6-6.2); White Blood Count 14.8 K/mm3 (4.4-11.0)
[2018-03-29 06:12] LABS: POSITIVE COUNT NO; POSITIVE DIFFERENTIAL NO; POSITIVE MORPHOLOGY NO
[2018-03-29 06:24] LABS: Anion Gap 7 (5-15); BUN 16 mg/dL (7-18); BUN/Creat Ratio 14.5 RATIO (10-20); Calcium,Total 8.1 mg/dL (8.5-10.1); Chloride 110 mmol/L (98-107); EST Glomerular Filtration Rate 71 mL/min (>60); Est Glom Filt Rate - Afr Amer 85 mL/min (>60); Estimated Creatinine Clearance 73.69 ml/min; Glucose 122 mg/dL (74-106); Potassium 4.4 mmol/L (3.5-5.1); Sodium Level 146 mmol/L (136-145)
[2018-03-29] MEDS: Albuterol 2.5 MG/3 ML VIAL.NEB. INHALATION ×3 (06:31→18:57)
[2018-03-29] MEDS: Montelukast 10 MG Tablet PO (08:01)
[2018-03-29] MEDS: Loratadine 10 MG Tablet PO (08:01)
[2018-03-29] MEDS: predniSONE 5 MG Tablet 15 MG PO (08:01)
[2018-03-29] MEDS: Fluticasone 0.05% 1 SPRAY NASAL.SRY 2 SPRAY NASAL (08:02)
[2018-03-29] MEDS: Ceftriaxone 1 GM/50 ML BAG IV (09:07)
--- NOTE | 2018-03-29 10:51 | PCM.PN.HOSP ---
Patient Problems: Active and Suspected Problems (Last Reviewed 03/28/18 @ 23:18 by Michael Levi MD) Sepsis due to urinary tract infection (Acute) Subjective: Patient admitted with a complaint of 1 day history of fever and chills. He had lithotripsy on outpatient basis and Dr. Hawthorne's office and subsequently went home and was urinating out the debris. He subsequently developed the fever and also dysuria. In the emergency had leukocytosis of 14.2 lactic acidosis of 2.9. [address] of the abdomen and pelvis showed resolution of left ureteropelvic junction stone. Is been managed for sepsis due to UTI. Blood cultures and urine cultures were ordered. Urology consulted. Patient seen and examined. is by his bedside. He still complained of dysuria and said he had fever overnight. He denied any chills. He also complained of a generalized headache denied any nausea or vomiting. Awaiting neurology recommendations. Vitals/I&O's: Vital Signs Temp Pulse Resp BP Pulse Ox 100.3 F H 56 L 18 117/47 L 95 03/29/18 09:11 03/29/18 09:11 03/29/18 09:11 03/29/18 09:11 03/29/18 09:11 Oxygen Delivery Method Room Air Weight: 318 lb 2.032 oz Body Mass Index (BMI) 40.8 Intake and Output for Last 24 Hours 03/27/18 03/28/18 03/29/18 23:59 23:59 23:59 Intake Total 610 / 610 Balance 610 / 610 General: Alert, Oriented x3, Cooperative, No apparent distress HEENT: Atraumatic, PERRLA, EOMI, Normocephalic Oral: Moist Mucosa Neck: Supple, No JVD, Negative Carotid Bruits Lungs: Clear to auscultation, Normal air movement, No rhonchi, No wheeze Cardiovascular: Regular rate, Regular Rhythm, Normal S1, Normal S2, No murmurs Abdomen: Bowel Sounds Present, Soft, Non Tender, Non-Distended, No Hepato-splenomegaly, - - No costophrenic angle tenderness bilaterally Extremities: No edema, Capillary Refill Less than 3 Seconds Skin: No rashes, No breakdown Musculoskeletal: No Tenderness to Palpation of Joints or Extremities Lymphatic: No Cervical, Supraclavicular, or Inguinal Adenopathy Neurological: Cranial nerves II-XII grossly intact, Motor Exam 5/5 strength throughout Psych/Mental Status: Normal Affect, Appropriate, Alert and oriented to time, place, person, mood and affect Laboratory Results 03/29/18 01:00: Lactic Acid 1.2 03/29/18 05:20: WBC 14.8 H, RBC 4.53 L, Hgb 13.6, Hct 41.6, MCV 91.8, MCH 30.0, MCHC 32.7, RDW 17.2 H, RDW Differential 56.1 H, Plt Count 189, MPV 9.6, Immature Gran % (Auto) 0.700, Neut % (Auto) 75.9 H, Lymph % (Auto) 13.2 L, [place] % (Auto) 10.0, Eos % (Auto) 0.1, Baso % (Auto) 0.1, Absolute Neuts (auto) 11.2 H, Absolute Lymphs (auto) 1.96, Total Counted Not Reportable 03/29/18 05:20: Sodium 146 H, Potassium 4.4, Chloride 110 H, Carbon Dioxide 29.0, Anion Gap 7, BUN 16, Creatinine 1.10, Estim Creat Clear Calc 73.69, Est GFR (MDRD) Af Amer 85, Est GFR (MDRD) Non-Af 71, BUN/Creatinine Ratio 14.5, Glucose 122 H, Calcium 8.1 L Diagnostic Data Abdomen/Pelvis CT 03/28/18 20:18 IMPRESSION: Left UPJ stone has been passed. There is residual gas in the collecting system at this level which could represent infection. Other incidental findings as noted above including gallstones. Electronically Signed: Nadeem Eller MD at 22:05 EDT , Service support , Chest X-Ray 03/28/18 20:20 IMPRESSION: Normal x-ray examination of the chest. Electronically Signed: Nadeem Eller MD at 21:28 EDT , Service support , Current Medications Albuterol Sulfate (Ventolin Aerosols) 2.5 mg INHALATION Q4H PRN PRN PRN Reason: SOB &/OR WHEEZING Albuterol Sulfate (Ventolin Aerosols) 2.5 mg INHALATION Q6HWA.RT [facility] Last Admin: 03/29/18 06:31 Dose: 2.5 mg Cholecalciferol (Vitamin D) 2,000 unit PO DAILY [facility] Last Admin: 03/29/18 08:01 Dose: 2,000 unit Fluticasone Propionate (Flonase Nasal [place]) 2 spray NASAL DAILY [facility] Last Admin: 03/29/18 08:02 Dose: 2 spray Ceftriaxone Sodium (Rocephin) 1 gm in 50 mls @ 100 mls/hr IV Q24 [facility] Last Admin: 03/29/18 09:07 Dose: 100 mls/hr Sodium Chloride () 1,000 mls @ 75 mls/hr IV .[id number] [facility] Last Admin: 03/28/18 23:51 Dose: 75 mls/hr Loratadine (Claritin) 10 mg PO DAILY [facility] Last Admin: 03/29/18 08:01 Dose: 10 mg Magnesium Hydroxide (Milk Of Magnesia) 30 ml PO DAILY PRN PRN PRN Reason: Constipation Montelukast Sodium (Singulair) 10 mg PO DAILY [facility] Last Admin: 03/29/18 08:01 Dose: 10 mg Morphine Sulfate () 2 mg IV Q3H PRN PRN PRN Reason: Severe Pain (pain scale 6-10) Ondansetron HCl (Zofran) 4 mg IV Q8H PRN PRN PRN Reason: Nausea Oxycodone HCl (Oxyir) 5 mg PO Q4H PRN PRN PRN Reason: Moderate Pain (pain scale 4-5) [facility] () [facility] Last Admin: 03/29/18 08:01 Dose: 15 mg Pyridostigmine [place] (Mestinon) 60 mg PO 0800,1200,1600,2000 [facility] Last Admin: 03/29/18 08:00 Dose: 60 mg Pyridostigmine [place] (Mestinon Timepan) 180 mg PO QHS [facility] Sodium Chloride () 5 - 30 ml IV UD PRN PRN Reason: SALINE FLUSH Medical Necessity - Tobacco Use Smoking Status: Never smoker Tobacco Use: Non-smoker Assessment/Plan All Active Problems (Last Reviewed 03/28/18 @ 23:18 by Michael Levi MD) Bronchitis (Resolved) Atrial flutter with rapid ventricular response (Resolved) Left ureteral calculus (Acute) Sepsis due to urinary tract infection (Acute) 1. Sepsis due to UTI Admitted with a complaint of fever after he had a recent lithotripsy about 3 days prior to admission. temp was 100.3 on admission. Is 100.3 Fahrenheit today. Had leukocytosis with white cell count of 14.8. CT abdomen/pelvis; multiple gallstones, gas in left UPJ junction, with previously noted ureterolith at this level not identified. blood cultures and urine cultures pending on IV ceftriaxone Urology consulted. Awaiting recommendations. lactic acid was 2.9 on admission; trended down to 1.2 will monitor; on IVF NS. Will cut down on IVF due to hypernatremia of 146 2. Myasthenia gravis: stable. On steroid and mestinon 3. History of allergies: on albuterol, flonase, claritin, singulair and symbicort. 5. DVT prophylaxis: SCDs. No anticoagulation o/a of hematuria This note was generated with [employer] dictation software. It may contain incorrect words, spelling, and punctuation that were not noted in checking the note before signing. Code Visit Inpatient E&M: 78853 Subs Hosp L3
--- NOTE | 2018-03-29 10:56 | PN_ITS ---
Patient Problems: Active and Suspected Problems (Last Reviewed 03/28/18 @ 23:18 by Michael Levi MD) Sepsis due to urinary tract infection (Acute) Subjective: Patient admitted with a complaint of 1 day history of fever and chills. He had lithotripsy on outpatient basis and Dr. Hawthorne's office and subsequently went home and was urinating out the debris. He subsequently developed the fever and also dysuria. In the emergency had leukocytosis of 14.2 lactic acidosis of 2.9. [address] of the abdomen and pelvis showed resolution of left ureteropelvic junction stone. Is been managed for sepsis due to UTI. Blood cultures and urine cultures were ordered. Urology consulted. Patient seen and examined. is by his bedside. He still complained of dysuria and said he had fever overnight. He denied any chills. He also complained of a generalized headache denied any nausea or vomiting. Awaiting neurology recommendations. Vitals/I&O's: Vital Signs Temp Pulse Resp BP Pulse Ox 100.3 F H 56 L 18 117/47 L 95 03/29/18 09:11 03/29/18 09:11 03/29/18 09:11 03/29/18 09:11 03/29/18 09:11 Oxygen Delivery Method Room Air Weight: 318 lb 2.032 oz Body Mass Index (BMI) 40.8 Intake and Output for Last 24 Hours 03/27/18 03/28/18 03/29/18 23:59 23:59 23:59 Intake Total 610 / 610 Balance 610 / 610 General: Alert, Oriented x3, Cooperative, No apparent distress HEENT: Atraumatic, PERRLA, EOMI, Normocephalic Oral: Moist Mucosa Neck: Supple, No JVD, Negative Carotid Bruits Lungs: Clear to auscultation, Normal air movement, No rhonchi, No wheeze Cardiovascular: Regular rate, Regular Rhythm, Normal S1, Normal S2, No murmurs Abdomen: Bowel Sounds Present, Soft, Non Tender, Non-Distended, No Hepato- splenomegaly, - - No costophrenic angle tenderness bilaterally Extremities: No edema, Capillary Refill Less than 3 Seconds Skin: No rashes, No breakdown Musculoskeletal: No Tenderness to Palpation of Joints or Extremities Lymphatic: No Cervical, Supraclavicular, or Inguinal Adenopathy Neurological: Cranial nerves II-XII grossly intact, Motor Exam 5/5 strength throughout Psych/Mental Status: Normal Affect, Appropriate, Alert and oriented to time, place, person, mood and affect Laboratory Results 03/29/18 01:00: Lactic Acid 1.2 03/29/18 05:20: WBC 14.8 H, RBC 4.53 L, Hgb 13.6, Hct 41.6, MCV 91.8, MCH 30.0, MCHC 32.7, RDW 17.2 H, RDW Differential 56.1 H, Plt Count 189, MPV 9.6, Immature Gran % (Auto) 0.700, Neut % (Auto) 75.9 H, Lymph % (Auto) 13.2 L, [place] % (Auto) 10.0, Eos % (Auto) 0.1, Baso % (Auto) 0.1, Absolute Neuts (auto) 11.2 H , Absolute Lymphs (auto) 1.96, Total Counted Not Reportable 03/29/18 05:20: Sodium 146 H, Potassium 4.4, Chloride 110 H, Carbon Dioxide 29.0 , Anion Gap 7, BUN 16, Creatinine 1.10, Estim Creat Clear Calc 73.69, Est GFR ( MDRD) Af Amer 85, Est GFR (MDRD) Non-Af 71, BUN/Creatinine Ratio 14.5, Glucose 122 H, Calcium 8.1 L Diagnostic Data Abdomen/Pelvis CT 03/28/18 20:18 IMPRESSION: Left UPJ stone has been passed. There is residual gas in the collecting system at this level which could represent infection. Other incidental findings as noted above including gallstones. Electronically Signed: Nadeem Eller MD at 22:05 EDT , Service support , Chest X-Ray 03/28/18 20:20 IMPRESSION: Normal x-ray examination of the chest. Electronically Signed: Nadeem Eller MD at 21:28 EDT , Service support , Current Medications Albuterol Sulfate (Ventolin Aerosols) 2.5 mg INHALATION Q4H PRN PRN PRN Reason: SOB &/OR WHEEZING Albuterol Sulfate (Ventolin Aerosols) 2.5 mg INHALATION Q6HWA.RT [facility] Last Admin: 03/29/18 06:31 Dose: 2.5 mg Cholecalciferol (Vitamin D) 2,000 unit PO DAILY [facility] Last Admin: 03/29/18 08:01 Dose: 2,000 unit Fluticasone Propionate (Flonase Nasal [place]) 2 spray NASAL DAILY [facility] Last Admin: 03/29/18 08:02 Dose: 2 spray Ceftriaxone Sodium (Rocephin) 1 gm in 50 mls @ 100 mls/hr IV Q24 [facility] Last Admin: 03/29/18 09:07 Dose: 100 mls/hr Sodium Chloride () 1,000 mls @ 75 mls/hr IV .[id number] [facility] Last Admin: 03/28/18 23:51 Dose: 75 mls/hr Loratadine (Claritin) 10 mg PO DAILY [facility] Last Admin: 03/29/18 08:01 Dose: 10 mg Magnesium Hydroxide (Milk Of Magnesia) 30 ml PO DAILY PRN PRN PRN Reason: Constipation Montelukast Sodium (Singulair) 10 mg PO DAILY [facility] Last Admin: 03/29/18 08:01 Dose: 10 mg Morphine Sulfate () 2 mg IV Q3H PRN PRN PRN Reason: Severe Pain (pain scale 6-10) Ondansetron HCl (Zofran) 4 mg IV Q8H PRN PRN PRN Reason: Nausea Oxycodone HCl (Oxyir) 5 mg PO Q4H PRN PRN PRN Reason: Moderate Pain (pain scale 4-5) [facility] Last Admin: 03/29/18 08:01 Dose: 15 mg Pyridostigmine [place] (Mestinon) 60 mg PO 0800,1200,1600,2000 [facility] Last Admin: 03/29/18 08:00 Dose: 60 mg Pyridostigmine [place] (Mestinon Timepan) 180 mg PO QHS [facility] Sodium Chloride () 5 - 30 ml IV UD PRN PRN Reason: SALINE FLUSH Medical Necessity - Tobacco Use Smoking Status: Never smoker Tobacco Use: Non-smoker Assessment/Plan All Active Problems (Last Reviewed 03/28/18 @ 23:18 by Michael Levi MD) Bronchitis (Resolved) Atrial flutter with rapid ventricular response (Resolved) Left ureteral calculus (Acute) Sepsis due to urinary tract infection (Acute) 1. Sepsis due to UTI * Admitted with a complaint of fever after he had a recent lithotripsy about 3 days prior to admission. * temp was 100.3 on admission. Is 100.3 Fahrenheit today. * Had leukocytosis with white cell count of 14.8. * CT abdomen/pelvis; multiple gallstones, gas in left UPJ junction, with previously noted ureterolith at this level not identified. * blood cultures and urine cultures pending * on IV ceftriaxone * Urology consulted. Awaiting recommendations. * lactic acid was 2.9 on admission; trended down to 1.2 * will monitor; on IVF NS. Will cut down on IVF due to hypernatremia of 146 * 2. Myasthenia gravis: stable. On steroid and mestinon 3. History of allergies: on albuterol, flonase, claritin, singulair and symbicort. 5. DVT prophylaxis: SCDs. No anticoagulation o/a of hematuria This note was generated with [employer] dictation software. It may contain incorrect words, spelling, and punctuation that were not noted in checking the note before signing. Code Visit Inpatient E&M: 74758 Subs Hosp L3
--- NOTE | 2018-03-29 13:32 | CASEMGMT ---
Face to Face with patient for initial transition planning/care coordination assessment. MARY CARDONA introduced self and role at [facility], pt voices understanding and consents to assessment at this time. Pt is sitting up in chair in no distress at this time. Pt is A/O x4 at this time and answers all questions appropriately at this time. Care providers, pharmacy, and demographics verified. See attached link. Pt voices no further concerns/needs at this time. Advised pt to ask for CM if any further questions/concerns/needs arise, voices understanding. PLAN: [place] MARY CARDONA
[2018-03-29] MEDS: 0.45% Normal Saline 1,000 ML 75 ML IV (14:02)
[2018-03-30 02:06] VITALS: BP 131/65; PULSE 82; RESP 16; TEMP 36.9; O2SAT 96
[2018-03-30] MEDS: 0.45% Normal Saline 1,000 ML 75 ML IV (02:14)
[2018-03-30 05:53] LABS: Absolute Lymphocyte Count 1.83 X10^3/ul (0.83-4.51); Absolute Neutrophil Count 7.3 X10^3/uL (2.0-7.7); Basophil# 0.01 X10^3/uL; Basophil% 0.1 % (0-1); Eosinophils% 0.9 % (0-5); Hematocrit 39.7 % (40-54); Lymphocyte # 1.83 X10^3/ul (4.0); Lymphocyte % 17.3 % (19-41); Mean Corp Hgb Conc 32.7 g/gl (32-36); Mean Corpuscular Volume 91.5 fL (80-94); Mean Platelet Vol. 9.8 fl (6.2-12.0); Monocyte# 1.23 X10^3/uL; Monocyte% 11.7 % (0-10); Neutrophil # 7.28 X10^3/uL (2.7-7.7); Neutrophil % 69.1 % (47-70); Platelet Count 164 K/mm3 (150-450); RBC Distribution Width CV 17.1 % (11.6-14.6); RBC Distribution Width SD 55.7 fl (35.1-43.9); Red Blood Count 4.34 M/mm3 (4.6-6.2); White Blood Count 10.6 K/mm3 (4.4-11.0)
[2018-03-30 05:54] LABS: POSITIVE COUNT NO; POSITIVE DIFFERENTIAL NO; POSITIVE MORPHOLOGY NO
[2018-03-30 06:05] LABS: Anion Gap 7 (5-15); BUN 14 mg/dL (7-18); BUN/Creat Ratio 15.1 RATIO (10-20); Calcium,Total 7.9 mg/dL (8.5-10.1); Chloride 109 mmol/L (98-107); Creatinine, Serum 0.93 mg/dL (0.70-1.30); EST Glomerular Filtration Rate 86 mL/min (>60); Est Glom Filt Rate - Afr Amer 104 mL/min (>60); Estimated Creatinine Clearance 87.16 ml/min; Glucose 112 mg/dL (74-106); Potassium 3.6 mmol/L (3.5-5.1); Sodium Level 144 mmol/L (136-145)
[2018-03-30 06:20] VITALS: BP 141/72; PULSE 80; RESP 16; TEMP 36.7; O2SAT 96
[2018-03-30 07:10] VITALS: PULSE 82; RESP 20
[2018-03-30] MEDS: Albuterol 2.5 MG/3 ML VIAL.NEB. INHALATION (07:18)
[2018-03-30] MEDS: Montelukast 10 MG Tablet PO (07:53)
[2018-03-30] MEDS: Fluticasone 0.05% 1 SPRAY NASAL.SRY 2 SPRAY NASAL (07:53)
[2018-03-30] MEDS: predniSONE 5 MG Tablet 15 MG PO (07:53)
[2018-03-30] MEDS: Loratadine 10 MG Tablet PO (07:53)
[2018-03-30] MEDS: Pyridostigmine Bromide 60 MG Tablet PO ×2 (07:54→12:03)
[2018-03-30 08:29] VITALS: O2SAT 95
[2018-03-30] MEDS: Ceftriaxone 1 GM/50 ML BAG IV (10:27)
--- NOTE | 2018-03-30 11:34 | DCINST_ITS ---
- Discharge Diagnoses Current Active Problems: Current Active and Chronic Problems (Last Reviewed 03/28/18 @ 23:18 by Michael Levi MD) Sepsis due to urinary tract infection (Acute) Myasthenia gravis (Chronic) You will use the following diet at home:: No restrictions Your food should be the consistency of: Regular Your liquids should be the consistency of: Regular/Thin Discharge Activity: Return to Normal Activity Allergies/Adverse Reactions: Allergies grass pollen-perennial rye, standar [grass poll-perennial rye,std] Allergy ( Intermediate, Verified 03/23/18 13:26) Inflammation of lung Medications to take at Discharge Albuterol Sulfate [Proventil Hfa] 2 puff IH 4X/DAY PRN PRN 06/09/14 Aspirin [Aspirin, Baby] 81 mg PO DAILY@0800 06/09/14 Fluticasone 0.05% [Flonase Nasal [place]] 2 spray NASAL DAILY 06/09/14 Multivitamins,Therapeutic [Multivitamin] 1 tab PO DAILY 06/09/14 [place]-3 Fatty Acids/Fish Oil [Fish Oil 1,000 mg Capsule] 2 ea PO DAILY 06/09/14 Budesonide/Formoterol 160/4.5 [Symbicort 160/4.5 Mcg Inhaler (SP)] 2 puff INHALATION BID 08/15/14 Montelukast [Singulair] 10 mg PO DAILY 08/15/14 cholecalciferol (vitamin D3) 2,000 unit capsule 2,000 unit PO DAILY 08/04/17 pyridostigmine bromide ER 180 mg tablet,extended release 180 mg PO QHS 08/05/17 Loratadine [Claritin] 10 mg PO DAILY 02/11/18 Prednisone 15 mg PO DAILY 02/11/18 Pyridostigmine [place] 4 tab PO Q4H 03/13/18 Ciprofloxacin [Cipro] 500 mg PO BID #10 tab 03/30/18 The following prescriptions were given: Ciprofloxacin [Cipro] 500 mg PO BID #10 tab Primary Care Physician: Susei Johnson MD [Primary Care Provider] - Please follow up with your Primary Care Physician in: 2 weeks Test Results: Test results from this visit will be discussed in further detail at your follow- up appointment, if applicable. Please Follow Up With: Gavino Louis MD - Call for appointment today When: 1 week
[2018-03-30 12:04] VITALS: BP 151/52; PULSE 89; RESP 16; TEMP 37; O2SAT 96
--- NOTE | 2018-03-30 13:53 | PCM.DC.SUM ---
<Avila Schmidt - Last Filed: 03/30/18 13:53> Discharge Date and Diagnosis Date of Admission: 03/28/18 Date of Discharge: 03/30/18 - Primary Discharge Diagnosis Acute severe sepsis 2/2 Acute pyelonephritis following lithotripsy for left UPJ stone Myasthenia gravis Asthma PAfib - Secondary Discharge Diagnosis Chronic Problems (Last Reviewed 03/28/18 @ 23:18 by Michael Levi MD) Paroxysmal atrial flutter (Chronic) Myasthenia gravis (Chronic) Premature ventricular beat (Chronic) Hyperlipidemia (Chronic) Hypertension (Chronic) Atrial flutter (Chronic) Obesity (BMI 30-39.9) (Chronic) Hospital Course and Treatment Imaging Results: CT/Abdomen/Pelvis without Cont IMPRESSION: Left UPJ stone has been passed. There is residual gas in the collecting system at this level which could represent infection. Other incidental findings as noted above including gallstones. RAD/Chest 1 View (Portable) IMPRESSION: Normal x-ray examination of the chest. Consults: Heriberto - urology Operations: None Procedures: None Summary of Care Provided: Physical exam on day of discharge: General: Resting comfortably NAD Psych: A/Ox3 normal affect HEENT: PEARRLA AT NC Neck: Supple NT CV: RRR no m/t/r/g/h Resp: CTA Abd: [id number] Soft NT no guarding or rigidity, he has no CVA tenderness. Ext: DP2+= no edema Skin: W/D normal turgor Lymph/Heme: No active bleeding or adenopathy Neuro: CN2-12 intact Hospital course: The patient is a 68 year old M who was treated for left UPJ stone with lithotripsy by Dr. Louis 3 days prior to presentation who came back with chills, leukocytosis, + UA, lactic acidosis, tachycardia, and fever. He was admitted for acute severe sepsis 2/2 acute pyelonephritis following instrumentation. CT abdomen showed resolution of left UPJ, residual gas in the collecting system which could represent infection, an incidental finding of gallstones.. He was admitted to the PCU and started on IV fluids, IV rocephin, urine culture was sent, and urology was consulted. He improved significantly with abx therapy over the next 2 days. His sepsis resolved. Urine showed GNR. Blood cultures are pending at this time. He was discharged home on 5 days of cipro. Please follow-up with urology in 1 week and with her PCP in 1-2 weeks. This patient was seen by Avila Schmidt PA-C under the supervision of Doctor Robert. [] Discharge Diet: Low fat/ Low Cholesterol, 2000 mg Sodium Diet Discharge Activity: Return to Normal Activity Home Medications: Medications to take at Discharge Albuterol Sulfate [Proventil Hfa] 2 puff IH 4X/DAY PRN PRN 06/09/14 Aspirin [Aspirin, Baby] 81 mg PO DAILY@0800 06/09/14 Fluticasone 0.05% [Flonase Nasal [place]] 2 spray NASAL DAILY 06/09/14 Multivitamins,Therapeutic [Multivitamin] 1 tab PO DAILY 06/09/14 [place]-3 Fatty Acids/Fish Oil [Fish Oil 1,000 mg Capsule] 2 ea PO DAILY 06/09/14 Budesonide/Formoterol 160/4.5 [Symbicort 160/4.5 Mcg Inhaler (SP)] 2 puff INHALATION BID 08/15/14 Montelukast [Singulair] 10 mg PO DAILY 08/15/14 cholecalciferol (vitamin D3) 2,000 unit capsule 2,000 unit PO DAILY 08/04/17 pyridostigmine bromide ER 180 mg tablet,extended release 180 mg PO QHS 08/05/17 Loratadine [Claritin] 10 mg PO DAILY 02/11/18 Prednisone 15 mg PO DAILY 02/11/18 Pyridostigmine [place] 4 tab PO Q4H 03/13/18 Ciprofloxacin [Cipro] 500 mg PO BID #10 tab 03/30/18 Following Prescrptions Were Given to Patient: Ciprofloxacin [Cipro] 500 mg PO BID #10 tab Primary Care Physician: Susie Johnson MD [Primary Care Provider] - Please follow up with your Primary Care Physician in: 2 weeks Please Follow Up With: Gavino Louis MD When: 1 week Please Follow Up With: Susie Johnson MD Disposition: Home Minutes spent on discharge:: 35 Patient Condition:: Stable Medical Necessity - Tobacco Use Smoking Status: Never smoker Tobacco Use: Non-smoker Meaningful Use Info Meaningful Use Diagnoses (Choose all that apply): None applicable <Melly Jones - Last Filed: 03/30/18 14:43> Discharge Date and Diagnosis - Secondary Discharge Diagnosis Chronic Problems (Last Reviewed 03/28/18 @ 23:18 by Michael Levi MD) Paroxysmal atrial flutter (Chronic) Myasthenia gravis (Chronic) Premature ventricular beat (Chronic) Hyperlipidemia (Chronic) Hypertension (Chronic) Atrial flutter (Chronic) Obesity (BMI 30-39.9) (Chronic) Hospital Course and Treatment Summary of Care Provided: Patient seen under my supervision by Avila Schmidt PA-C The patient is a 68 year old M was admitted with a complaint of fever and chills as well as leukocytosis, lactic acidosis and tachycardia. He had had lithotripsy for left ureteropelvic junction stone with the urologist on 3 days prior to admission. CT of the abdomen showed resolution of the left ureteropelvic junction stone. He was admitted and managed for sepsis likely due to pyelonephritis. He was started on IV Rocephin and urine cultures were sent. Urology was consulted. Urine showed gram negative rods, with 1000-10,000 CFU/ml. He became afebrile, leucocytosis resolved, and he improved clinically. He was dicharged home on a 5 day course of oral Ciprofloxacin. Seen and examined prior to discharge. He had no complaints and felt well. Review of systems was essentially negative. o/e: General: Alert, Oriented x3, Cooperative, No apparent distress HEENT: Atraumatic, PERRLA, EOMI, Normocephalic Oral: Moist Mucosa Neck: Supple, No JVD, Negative Carotid Bruits Lungs: Clear to auscultation, Normal air movement, No rhonchi, No wheeze Cardiovascular: Regular rate, Regular Rhythm, Normal S1, Normal S2, No murmurs Abdomen: Bowel Sounds Present, Soft, Non Tender, Non-Distended, No Hepato-splenomegaly, - - No costophrenic angle tenderness bilaterally Extremities: No edema, Capillary Refill Less than 3 Seconds Skin: No rashes, No breakdown Musculoskeletal: No Tenderness to Palpation of Joints or Extremities Lymphatic: No Cervical, Supraclavicular, or Inguinal Adenopathy Neurological: Cranial nerves II-XII grossly intact, Motor Exam 5/5 strength throughout Psych/Mental Status: Normal Affect, Appropriate, Alert and oriented to time, place, person, mood and affect Agree with assessment and plan by Avila Schmidt PA-C. He is to follow up with PCP and urologist. [] Code Visit Inpatient E&M: 89097 Disch Hosp
--- NOTE | 2018-03-30 14:01 | DS.PCM_ITS ---
<Avila Schmidt - Last Filed: 03/30/18 13:53> Discharge Date and Diagnosis Date of Admission: 03/28/18 Date of Discharge: 03/30/18 - Primary Discharge Diagnosis Acute severe sepsis 2/2 Acute pyelonephritis following lithotripsy for left UPJ stone Myasthenia gravis Asthma PAfib - Secondary Discharge Diagnosis Chronic Problems (Last Reviewed 03/28/18 @ 23:18 by Michael Levi MD) Paroxysmal atrial flutter (Chronic) Myasthenia gravis (Chronic) Premature ventricular beat (Chronic) Hyperlipidemia (Chronic) Hypertension (Chronic) Atrial flutter (Chronic) Obesity (BMI 30-39.9) (Chronic) Hospital Course and Treatment Imaging Results: CT/Abdomen/Pelvis without Cont IMPRESSION: Left UPJ stone has been passed. There is residual gas in the collecting system at this level which could represent infection. Other incidental findings as noted above including gallstones. RAD/Chest 1 View (Portable) IMPRESSION: Normal x-ray examination of the chest. Consults: Heriberto - urology Operations: None Procedures: None Summary of Care Provided: Physical exam on day of discharge: General: Resting comfortably NAD Psych: A/Ox3 normal affect HEENT: PEARRLA AT NC Neck: Supple NT CV: RRR no m/t/r/g/h Resp: CTA Abd: [id number] Soft NT no guarding or rigidity, he has no CVA tenderness. Ext: DP2+= no edema Skin: W/D normal turgor Lymph/Heme: No active bleeding or adenopathy Neuro: CN2-12 intact Hospital course: The patient is a 68 year old M who was treated for left UPJ stone with lithotripsy by Dr. Louis 3 days prior to presentation who came back with chills , leukocytosis, + UA, lactic acidosis, tachycardia, and fever. He was admitted for acute severe sepsis 2/2 acute pyelonephritis following instrumentation. CT abdomen showed resolution of left UPJ, residual gas in the collecting system which could represent infection, an incidental finding of gallstones.. He was admitted to the PCU and started on IV fluids, IV rocephin, urine culture was sent, and urology was consulted. He improved significantly with abx therapy over the next 2 days. His sepsis resolved. Urine showed GNR. Blood cultures are pending at this time. He was discharged home on 5 days of cipro. Please follow- up with urology in 1 week and with her PCP in 1-2 weeks. This patient was seen by Avila Schmidt PA-C under the supervision of Doctor Robert. [] Discharge Diet: Low fat/ Low Cholesterol, 2000 mg Sodium Diet Discharge Activity: Return to Normal Activity Home Medications: Medications to take at Discharge Albuterol Sulfate [Proventil Hfa] 2 puff IH 4X/DAY PRN PRN 06/09/14 Aspirin [Aspirin, Baby] 81 mg PO DAILY@0800 06/09/14 Fluticasone 0.05% [Flonase Nasal [place]] 2 spray NASAL DAILY 06/09/14 Multivitamins,Therapeutic [Multivitamin] 1 tab PO DAILY 06/09/14 [place]-3 Fatty Acids/Fish Oil [Fish Oil 1,000 mg Capsule] 2 ea PO DAILY 06/09/14 Budesonide/Formoterol 160/4.5 [Symbicort 160/4.5 Mcg Inhaler (SP)] 2 puff INHALATION BID 08/15/14 Montelukast [Singulair] 10 mg PO DAILY 08/15/14 cholecalciferol (vitamin D3) 2,000 unit capsule 2,000 unit PO DAILY 08/04/17 pyridostigmine bromide ER 180 mg tablet,extended release 180 mg PO QHS 08/05/17 Loratadine [Claritin] 10 mg PO DAILY 02/11/18 Prednisone 15 mg PO DAILY 02/11/18 Pyridostigmine [place] 4 tab PO Q4H 03/13/18 Ciprofloxacin [Cipro] 500 mg PO BID #10 tab 03/30/18 Following Prescrptions Were Given to Patient: Ciprofloxacin [Cipro] 500 mg PO BID #10 tab Primary Care Physician: Susie Johnson MD [Primary Care Provider] - Please follow up with your Primary Care Physician in: 2 weeks Please Follow Up With: Gavino Louis MD When: 1 week Please Follow Up With: Susie Johnson MD Disposition: Home Minutes spent on discharge:: 35 Patient Condition:: Stable Medical Necessity - Tobacco Use Smoking Status: Never smoker Tobacco Use: Non-smoker Meaningful Use Info Meaningful Use Diagnoses (Choose all that apply): None applicable <Melly Jones - Last Filed: 03/30/18 14:43> Discharge Date and Diagnosis - Secondary Discharge Diagnosis Chronic Problems (Last Reviewed 03/28/18 @ 23:18 by Michael Levi MD) Paroxysmal atrial flutter (Chronic) Myasthenia gravis (Chronic) Premature ventricular beat (Chronic) Hyperlipidemia (Chronic) Hypertension (Chronic) Atrial flutter (Chronic) Obesity (BMI 30-39.9) (Chronic) Hospital Course and Treatment Summary of Care Provided: Patient seen under my supervision by Avila Schmidt PA-C The patient is a 68 year old M was admitted with a complaint of fever and chills as well as leukocytosis, lactic acidosis and tachycardia. He had had lithotripsy for left ureteropelvic junction stone with the urologist on 3 days prior to admission. CT of the abdomen showed resolution of the left ureteropelvic junction stone. He was admitted and managed for sepsis likely due to pyelonephritis. He was started on IV Rocephin and urine cultures were sent. Urology was consulted. Urine showed gram negative rods, with 1000-10,000 CFU/ml. He became afebrile, leucocytosis resolved, and he improved clinically. He was dicharged home on a 5 day course of oral Ciprofloxacin. Seen and examined prior to discharge. He had no complaints and felt well. Review of systems was essentially negative. o/e: General: Alert, Oriented x3, Cooperative, No apparent distress HEENT: Atraumatic, PERRLA, EOMI, Normocephalic Oral: Moist Mucosa Neck: Supple, No JVD, Negative Carotid Bruits Lungs: Clear to auscultation, Normal air movement, No rhonchi, No wheeze Cardiovascular: Regular rate, Regular Rhythm, Normal S1, Normal S2, No murmurs Abdomen: Bowel Sounds Present, Soft, Non Tender, Non-Distended, No Hepato- splenomegaly, - - No costophrenic angle tenderness bilaterally Extremities: No edema, Capillary Refill Less than 3 Seconds Skin: No rashes, No breakdown Musculoskeletal: No Tenderness to Palpation of Joints or Extremities Lymphatic: No Cervical, Supraclavicular, or Inguinal Adenopathy Neurological: Cranial nerves II-XII grossly intact, Motor Exam 5/5 strength throughout Psych/Mental Status: Normal Affect, Appropriate, Alert and oriented to time, place, person, mood and affect Agree with assessment and plan by Avila Schmidt PA-C. He is to follow up with PCP and urologist. [] Code Visit Inpatient E&M: [id number] Disch Hosp
--- NOTE | 2018-03-31 14:58 | CASEMGMT ---
FOLLOW-UP CALL: Follow-up call placed to patient. Patient was unavailable to come to the phone. His , Anastasiya, states that he is doing well and tells me that he has been taking his prescriptions. She also verified that the patient has a follow-up appointment scheduled with Dr. Louis for April 06, 2018. Patient's expressed no further concerns or questions.
== END 2018-03-30 12:18 | disposition home or self-care (01) | DRG 863 ==
LOC: ED 20:40 → PCU 23:13
PROVIDERS: Admitting Provider Hospitalist; Emergency Provider Emergency Medicine; Family Provider Internal Medicine; PCP Internal Medicine; Visit Provider Student in an Organized Health Care Education/Training Program
DX: T81.4XXA Infection following a procedure, initial encounter (principal); N10 Acute pyelonephritis; E87.0 Hyperosmolality and hypernatremia; Z68.41 Body mass index [BMI] 40.0-44.9, adult; N20.1 Calculus of ureter; E87.8 Other disorders of electrolyte and fluid balance, not elsewhere classified; D72.829 Elevated white blood cell count, unspecified; G70.00 Myasthenia gravis without (acute) exacerbation; J45.909 Unspecified asthma, uncomplicated; I48.0 Paroxysmal atrial fibrillation; I10 Essential (primary) hypertension; E78.00 Pure hypercholesterolemia, unspecified; G47.33 Obstructive sleep apnea (adult) (pediatric); R19.7 Diarrhea, unspecified; E66.9 Obesity, unspecified; Z79.51 Long term (current) use of inhaled steroids; Z79.82 Long term (current) use of aspirin; Z79.52 Long term (current) use of systemic steroids; Z79.899 Other long term (current) drug therapy; Z85.038 Personal history of other malignant neoplasm of large intestine; Z79.891 Long term (current) use of opiate analgesic
CPT/HCPCS: 36415; 71045; 71046; 74018; 74176; 80048; 81001; 83605; 85025; 85027; 87040; 87086; 87088; 93005; 94640; 97161; 97166; 99282; J7030; J7120; A4216; C1769; J2405

== ENCOUNTER → 2018-04-06 09:36 | Outpatient (CLI) | payer MEDICARE, SELFPAY ==
--- NOTE | 2018-04-06 09:42 | RAD_ITS ---
STUDY: X-RAY - ABDOMEN/PELVIS REASON FOR EXAM: Male, 68 years old. Left renal stone status post lithotripsy TECHNIQUE: Two AP supine views of the abdomen and pelvis. COMPARISON: CT 03/28/2018 FINDINGS: There is an unremarkable bowel gas pattern. There is no demonstrated free abdominal air. The visualized liver, spleen and kidneys are grossly normal in size and morphology. Gallstones are seen. No definite renal or ureteral calculus is present. There are diffuse degenerative changes of the visualized lumbar spine. RAD/Abdomen Single View IMPRESSION: Cholelithiasis. No definite renal or ureteral calculus. Electronically Signed: Shahram Wellington DO at 9:15 EDT Tel , Service support ,
== END ==
PROVIDERS: Family Provider Internal Medicine; PCP Internal Medicine; Visit Provider Urology
DX: N20.0 Calculus of kidney (principal)
CPT/HCPCS: 74018

== ENCOUNTER → 2018-04-26 17:43 | Outpatient (CLI) | payer MEDICARE, SELFPAY ==
[2018-04-26 18:32] LABS: Color, Urine Yellow (Yellow); Glucose, Dipstick Normal (Normal); Ketone-Dipstick 5 mg/dl (Negative); Leukocyte Esterase-Dipstick 100 /ul (Negative); Nitrite-Dipstick Negative (Negative); Occult Blood-Urine 10 /ul (Negative); Protein-Dipstick 100 mg/dl (Negative); Urine Clarity Cloudy (Clear); Urine Urobilinogen 1 mg/dl (Normal)
[2018-04-26 19:24] LABS: Urine Bilirubin Dipstick 1 mg/dL (Negative)
[2018-04-26 19:28] LABS: Bacteria 3+ /hpf (None Seen); Calcium Oxalate Crystals Ur 1+ /hpf (<or=2+); Mucous, Urine 4+ /hpf (<or=2+); Red Blood Cells-Urine 0-5 SEEN /hpf (0-5); Squamous Epithelial Cells - UA 0-5 SEEN /hpf (0-5); White Blood Cells 10-25 SEEN /hpf (0-5)
== END ==
PROVIDERS: Family Provider Internal Medicine; PCP Internal Medicine; Visit Provider Physician Assistant Surgical
DX: N39.0 Urinary tract infection, site not specified (principal); R30.0 Dysuria
CPT/HCPCS: 81001; 87077; 87086; 87088; 87186